=== PATIENT | female | born 1940 | race Caucasian/White ===

== ENCOUNTER 2022-06-01 14:35 | Inpatient (IN) ==
[2022-06-01] MEDS ORDERED: SODIUM CHLORIDE 0.9% 1000ML 2,000 ML IV ONE (14:42)
--- NOTE | 2022-06-01 14:47 | Emergency Department Note ---
Impression & Plan Sepsis, Lactic acidosis, Hypokalemia, ARTIE (acute kidney injury), Elevated troponin, CKD (chronic kidney disease) stage 3, GFR 30-59 ml/min ED Provider Note NAME: WALTER BEEBE AGE: 81 SEX: F : 1940 ARRIVES VIA: Ambulance INFORMANT: Patient ED PROVIDER(S): Gold Zeng DO CHIEF COMPLAINT: weakness HPI: Patient is an 81-year-old female who presents to the ER as she has not left bed for the past week and notes that she has not been eating and drinking. She notes she fell about twice within the past week but does not believe she hit her head. She denies any headache or change in vision. No chest pain or shortness of breath. She admits to nausea and vomiting. She does admit to some abdominal discomfort. No urinary symptoms. She does feel very weak. [facility] was called and consequently EMS was called as well and transferred her to the ER. She denies taking any medications. Blood pressures in route were in the 80s. ROS: See above HPI for pertinent positives & negatives. A total of 10 systems reviewed and were otherwise negative. PAST MEDICAL HISTORY:See Below PAST SURGICAL HISTORY:See Below FAMILY HISTORY:See Below SOCIAL HISTORY:See Below HOME MEDICATIONS:See Below ALLERGIES:See Below VITALS:See Below PHYSICAL EXAMINATION: GENERAL: Sitting up in bed, alert, ill-appearing, disheveled with vomit on her shirt, cachectic EYE EXAM: normal conjunctiva. OROPHARYNX: mucous membranes are dry NECK: supple, no nuchal rigidity, no adenopathy, non-tender LUNGS: Clear to auscultation. Normal chest wall mechanics HEART: no murmurs, S1 normal and S2 normal ABDOMEN: abdomen soft, non-tender, normo-active bowel sounds, no masses, no rebound or guarding. BACK: Back is symmetrical on inspection and there is no deformity, no midline tenderness, no CVA tenderness. UPPER EXTREMITIES: upper extremities are grossly normal. LOWER EXTREMITIES: No pitting edema. NEURO EXAM: Oriented to person, place but not year, cranial nerves II-XII intact, normal speech, no weakness of arms, no weakness of legs. No drift. Finger to nose intact. Gross sensation intact. GCS 14 MEDICAL DECISION MAKING: Patient is an 81-year-old female who presents ER for above-stated complaint. IV was established blood work was obtained. Labs show mild leukocytosis of 14,000. No significant anemia. INR was unremarkable. BMP with a sodium elevated at 148. Significant hypokalemia 2.6. Cr 1.6. Lactate up at 7. Troponin elevated at 120. UA did have nitrates but likely secondary to the bilirubin. COVID was negative. Patient was given 2 g of Rocephin and covered broad-spectrum with Zosyn following having CT with a "distended gallbladder although she has no pain on exam. She was given 3 L of IV fluids. Updated bedside. Discussed with the hospitalist for further evaluation. CT head cervical spine were negative. Chest x-ray was unremarkable. EKG did show ST depressions. Patient's mentation improved significantly with IV fluids. She adamantly denies any pain at this time including chest pain and shortness of breath. Uncertain of the true cause of this but will not start her on a blood thinner at this time as she is not having any chest pain and will defer to the hospitalist. Triage Nursing notes reviewed. Limited review of prior medical records performed Vital Signs: reviewed and remarkable for no significant abnormalities Differential diagnosis: Infection, dehydration, metabolic abnormality, hypo/hyperglycemia, electrolyte disturbance, anemia, hypoxia, cardiac sources, intracerebral event, toxicologic, neurologic, as well as other pathologies. ER treatment provided: See below Diagnostics interpreted by me: ECG: Sinus rhythm rate of [address] depressions in V3 to V6 QTC 511 Cardiac Monitoring: An order was placed for continuous cardiac monitoring. The monitor shows a rate of 112 with sinus rhythm. Laboratory studies: As stated above and show below. Imaging studies: CT head, cervical spine and was negative CT abdomen pelvis showed distended gallbladder Consultation(s): Discussed with Renata from [facility] for further evaluation Procedures: none Critical Care: I have personally spent 32 minutes of critical care time in the direct management of this patient. This includes bedside care, interpretation of diagnostic studies, and testing, discussion with consultants, patient, and family members, and other required patient management activities. This 32 minutes is in excess of all separately billable procedures. Past Med/Surg History Medical History (Updated 06/01/22 @ 20:01 by Gold Zeng DO) CKD (chronic kidney disease) stage 3, GFR 30-59 ml/min Esotropia of right eye HLD (hyperlipidemia) HTN (hypertension) Surgical History (Updated 06/01/22 @ 17:35 by Renata Paz PA-C) Hx of bilateral cataract extraction Hx of fracture of patella Family History (Updated 06/01/22 @ 17:36 by Renata Paz PA-C) Mother Progressive supranuclear palsy Father Sepsis Cancer Social History (Updated 06/01/22 @ 17:36 by Renata Paz PA-C) Smoking Status: Never smoker Hx Alcohol Use: No Preferred Language: Tuvaluan marital status: Current Living Situation: Spouse Feels Safe at Home: No Allergies Allergies Allergy/AdvReac Type Severity Reaction Status Date / Time No Known Allergies Allergy Unverified 06/01/22 17:01 Home Meds Home Medications Medication Instructions Recorded Confirmed cholecalciferol (vitamin D3) 50 50 mcg PO DAILY 06/01/22 06/01/22 mcg (2,000 unit) tablet (Vitamin D3) multivitamin 1 tab PO DAILY 06/01/22 06/01/22 Results & Data (ED) Vital Signs Vital Signs - 24 hr 06/01/22 14:45 06/01/22 14:55 Temperature 36.5 C Temperature Source Oral Pulse Rate 105 H Respiratory Rate 16 16 Respiratory Effort / Characteristics Non-Labored Spontaneous Non-Labored Spontaneous Respiratory Depth Normal Respiratory Pattern Regular Blood Pressure 113/70 Blood Pressure Mean 84 Blood Pressure Position Semi-fowlers Pulse Oximetry 95 96 Oxygen Delivery Method Room Air Room Air Sepsis Recent Fever Within 48 Hours No Sepsis New/Unexplained Change in Mental Status No Sepsis Action Taken by Nursing No Action Required Laboratory Data Result diagrams: 06/01/22 14:49 06/01/22 14:49 Lab Results 06/01/22 06/01/22 06/01/22 Range/Units 14:49 14:49 14:49 WBC 14.68 H (4.8-10.8) K/ul RBC 5.55 H (3.93-5.22) M/uL Hgb 15.5 (12.0-16.0) g/dl Hct 45.7 H (34.1-44.9) % MCV 82.3 (80.0-100.0) fL MCH 27.9 (25.0-34.0) pg MCHC 33.9 (32.0-36.0) g/dL RDW Std Deviation 41.3 (36.4-46.3) fL RDW Coeff of Kassandra 14.0 (11.5-14.5) % Plt Count 246 (130-400) K/uL MPV 10.2 (9.4-12.3) fL Immature Gran % (Auto) 0.3 % Neut % (Auto) 85.7 % Lymph % (Auto) 11.9 % Cecil % (Auto) 2.0 % Eos % (Auto) 0.0 % Baso % (Auto) 0.1 % Neut # (Auto) 12.59 H (1.4-6.5) K/uL Lymph # (Auto) 1.74 (1.2-3.4) K/uL Cecil # (Auto) 0.29 (0.24-0.82) K/uL Eos # (Auto) 0.00 (0-0.50) K/uL Baso # (Auto) 0.02 (0-0.2) K/uL Immature Gran # (Auto) 0.04 H (0.00-0.02) K/uL PT 12.2 H (9.0-12.0) Seconds INR 1.2 H (0.9-1.1) APTT 26.7 (21.0-31.0) Seconds PTT Ratio 1.0 Sodium 148 H (136-145) mmol/L Potassium 2.6 L (3.5-5.1) mmol/L Chloride 93 L (98-107) mmol/L Carbon Dioxide 31 (21-32) mmol/L Anion Gap 24 H (3-11) BUN 61 H (6-23) mg/dl Creatinine 1.61 H (0.6-1.2) mg/dl Est Cr Clr Drug Dosing Not Reportable Est GFR ( Amer) 33.9 ml/min Est GFR (Non-Af Amer) 29.3 ml/min BUN/Creatinine Ratio 37.9 H (10-20) Glucose 117 H (70-99(Fasting)) mg/dl Lactate (0.4-2.0) mmol/L Calcium 8.1 L (8.5-10.1) mg/dl Magnesium 2.2 (1.7-2.4) mg/dl Total Bilirubin 1.8 H (0.2-1.0) mg/dl AST 24 (13-39) U/L ALT 19 (7-52) U/L Alkaline Phosphatase 103 (34-104) U/L Total Creatine Kinase 44 (26-192) U/L Troponin I High Sens (0-14) pg/ml Total Protein 6.6 (6.0-8.3) gm/dl Albumin 3.3 L (3.4-5.0) gm/dl Globulin 3.3 (2.5-4.0) gm/dl Albumin/Globulin Ratio 1.0 (0.9-2) SARS-CoV-2, RNA, NAAT (NEGATIVE) 06/01/22 06/01/22 06/01/22 Range/Units 14:49 14:49 15:00 WBC (4.8-10.8) K/ul RBC (3.93-5.22) M/uL Hgb (12.0-16.0) g/dl Hct (34.1-44.9) % MCV (80.0-100.0) fL MCH (25.0-34.0) pg MCHC (32.0-36.0) g/dL RDW Std Deviation (36.4-46.3) fL RDW Coeff of Kassandra (11.5-14.5) % Plt Count (130-400) K/uL MPV (9.4-12.3) fL Immature Gran % (Auto) % Neut % (Auto) % Lymph % (Auto) % Cecil % (Auto) % Eos % (Auto) % Baso % (Auto) % Neut # (Auto) (1.4-6.5) K/uL Lymph # (Auto) (1.2-3.4) K/uL Cecil # (Auto) (0.24-0.82) K/uL Eos # (Auto) (0-0.50) K/uL Baso # (Auto) (0-0.2) K/uL Immature Gran # (Auto) (0.00-0.02) K/uL PT (9.0-12.0) Seconds INR (0.9-1.1) APTT (21.0-31.0) Seconds PTT Ratio Sodium (136-145) mmol/L Potassium (3.5-5.1) mmol/L Chloride (98-107) mmol/L Carbon Dioxide (21-32) mmol/L Anion Gap (3-11) BUN (6-23) mg/dl Creatinine (0.6-1.2) mg/dl Est Cr Clr Drug Dosing Est GFR ( Amer) ml/min Est GFR (Non-Af Amer) ml/min BUN/Creatinine Ratio (10-20) Glucose (70-99(Fasting)) mg/dl Lactate 7.0 H* (0.4-2.0) mmol/L Calcium (8.5-10.1) mg/dl Magnesium (1.7-2.4) mg/dl Total Bilirubin (0.2-1.0) mg/dl AST (13-39) U/L ALT (7-52) U/L Alkaline Phosphatase (34-104) U/L Total Creatine Kinase (26-192) U/L Troponin I High Sens 116.4 H* (0-14) pg/ml Total Protein (6.0-8.3) gm/dl Albumin (3.4-5.0) gm/dl Globulin (2.5-4.0) gm/dl Albumin/Globulin Ratio (0.9-2) SARS-CoV-2, RNA, NAAT NEGATIVE (NEGATIVE) Administered Medications Discontinued Medications Sodium Chloride (Nss 1000ml) 2,000 mls @ 999 mls/hr IV .Q2H1M ONE Stop: 06/01/22 16:42 Last Infusion: 06/01/22 17:49 Dose: 0 mls/hr Documented By: Admin: 06/01/22 15:07 Dose: 999 mls/hr Documented By: NA Potassium Chloride (K Mingo / Wtr) 10 meq in 100 mls @ 100 mls/hr IV Q1H NELLI; Protocol Stop: 06/01/22 17:14 Last Infusion: 06/01/22 17:49 Dose: 0 mls/hr Documented By: Admin: 06/01/22 16:34 Dose: 100 mls/hr Documented By: Infusion: 06/01/22 16:07 Dose: 100 mls/hr Documented By: Admin: 06/01/22 15:07 Dose: 100 mls/hr Documented By: NA Ceftriaxone Sodium (Rocephin) 2,000 mg in 70 mls @ 140 mls/hr IV NOW STA Stop: 06/01/22 16:03 Last Infusion: 06/01/22 17:49 Dose: 0 mls/hr Documented By: Admin: 06/01/22 16:35 Dose: 140 mls/hr Documented By: JOANN Sodium Chloride (Nss 1000ml) 1,000 mls @ 999 mls/hr IV .Q1H1M ONE Stop: 06/01/22 16:34 Last Infusion: 06/01/22 17:49 Dose: 0 mls/hr Documented By: Admin: 06/01/22 16:34 Dose: 999 mls/hr Documented By: JOANN Piperacillin Sod/Tazobactam Sod (Zosyn) 4.5 gm in 120 mls @ 240 mls/hr IV NOW ONE Stop: 06/01/22 17:19 Last Infusion: 06/01/22 18:33 Dose: 0 mls/hr Documented By: Admin: 06/01/22 17:46 Dose: 240 mls/hr Documented By: ROMAN Potassium Chloride (K Mingo / Wtr) 10 meq in 100 mls @ 100 mls/hr IV ONE ONE; Protocol Stop: 06/01/22 18:31 Last Infusion: 06/01/22 18:49 Dose: 0 mls/hr Documented By: Admin: 06/01/22 17:48 Dose: 100 mls/hr Documented By: ROMAN Imaging Data Radiologist's Impression: Abdomen/Pelvis CT 06/01/22 14:[address] WITHOUT CONTRAST CT DOSE: HISTORY: vomiting TECHNIQUE: Multiaxial CT images of the abdomen and pelvis were performed without contrast. A dose lowering technique was utilized adhering to the principles of ALARA. COMPARISON STUDY: None. FINDINGS: The lung bases are clear. No pneumoperitoneum. No pneumatosis. No fractures within the visualized osseous structures. Levoscoliosis of the lumbar spine. There is a large hiatus hernia containing the proximal stomach. The unenh anced liver, gallbladder, pancreas, spleen, and adrenal glands are unremarkable. There are few punctate left renal calculi. No ureteral calculi. No hydronephrosis. No retroperitoneal lymphadenopathy. Mild calcified plaque within the normal caliber abdominal aorta. The bladder is moderately distended. There is a large partially calcified uterine fibroid measuring 6.9 cm. There are few additional smaller calcified and noncalcified uterine fibroids. Suboptimal evaluation for bowel pathology due to the lack of intravenous and oral contrast. However, there is no evidence for bowel obstruction. Normal appendix. There appears a mild thickening within the splenic flexure of the colon, ascending colon, and proximal transverse colon. This is consistent with a nonspecific colitis. This favors an infectious or inflammatory process. IMPRESSION: 1. Mild thickening within the colon as described above likely representing an infectious or inflammatory colitis. 2. No evidence for bowel obstruction. 3. Distended bladder. 4. Fibroid uterus. 5. Left-sided nephrolithiasis. No hydronephrosis. 6. Large hiatus hernia. ACT 112: Negative or not required by law. Electronically signed by: Chad Ward M.D. 06/01/2022 4:[address] 06/01/22 14:42 CT SCAN OF THE CERVICAL SPINE CLINICAL HISTORY: Fall. Change in mental status. COMPARISON STUDY: No priors. TECHNIQUE: CT scan of the cervical spine is performed from the skull base to the upper thoracic spine. Images are reviewed in the axial, sagittal, and coronal planes. IV contrast was not administered for this examination. A dose lowering technique was utilized adhering to the principles of ALARA. CT DOSE: 1070.21 mGy.cm FINDINGS: Skeletal structures: The skeletal structures are osteopenic. There is no evidence of fracture or subluxation involving the cervical spine. Vertebral body height and alignment are maintained. Anterior osteophytes are seen throughout. The odontoid process and lateral masses are intact. The atlantoaxial articulation is preserved noting productive degenerative change. The spinous processes appear intact. There is mild to moderate multilevel cervical spondylosis. Uncovertebral and facet arthropathy contribute to neural foraminal narrowing at several levels. Intervertebral discs: There is severe disc space narrowing at C3-C4 and C5-C6. Mild narrowing is seen at the remaining cervical levels. Central canal: Posterior disc osteophyte complexes at C3-C4, C5-C6, and C6-C7 may contribute to acquired compromise of the central canal. Soft tissues: The prevertebral and paraspinous soft tissues are within normal limits. Calvarium: The visualized calvarium at the skull base appears intact. Brain parenchyma: Partially visualized brain parenchyma at the skull base is within normal limits noting age-related involutional change. Sinuses and mastoids: The visualized paranasal sinuses are clear. The mastoid air cells are well pneumatized. Lung apices: Clear as visualized. IMPRESSION: 1. There is no evidence of fracture or subluxation involving the cervical spine. 2. Osteopenia and spondylotic change as above. ACT 112: Negative or not required by law. Electronically signed by: Geraldo Ambriz M.D. 06/01/2022 4:25 PM Chest X-Ray 06/01/22 14:42 XR chest 1V portable CLINICAL HISTORY: SEPSIS. COMPARISON STUDY: No previous studies for comparison. TECHNIQUE: 1 view of the chest FINDINGS: Single frontal view of the chest demonstrates the cardiomediastinal silhouette to be within normal limits. The lungs are clear of alveolar opacities. There is no evidence for pleural effusion. There is no evidence for vascular congestion. There is no acute osseous pathology. IMPRESSION: 1. No acute cardiopulmonary disease. ACT 112: Negative or not required by law. Electronically signed by: Kai Bui M.D. 06/01/2022 3:[address] 06/01/22 14:42 CT SCAN OF THE BRAIN WITHOUT IV CONTRAST CLINICAL HISTORY: Fall. Change in mental status. COMPARISON STUDY: No priors TECHNIQUE: Unenhanced axial CT scan of the brain is performed from the vertex to the skull base. A dose lowering technique was utilized adhering to the principles of ALARA. FINDINGS: Brain parenchyma: There is age-related involutional change noting mild subcortical and periventricular microangiopathic disease. There is no hemorrhage, mass effect, or evidence of acute territorial ischemia by CT criteria. Guerrero-white matter differentiation is preserved. No extra-axial fluid collection is seen. Ventricles, sulci, cisterns: Prominent secondary to involutional change. Intracranial vasculature: There is atherosclerotic calcification of the cavernous carotid arteries. Calvarium: The skeletal structures are osteopenic. No depressed calvarial fracture is identified. Sinuses and mastoids: The visualized paranasal sinuses are clear. The mastoid air cells are well pneumatized. Orbits: The bony orbits are grossly intact. There are bilateral ocular lens implants. IMPRESSION: There is no hemorrhage, mass effect, or evidence of acute territorial ischemia by CT criteria. ACT 112: Negative or not required by law. Electronically signed by: Geraldo Ambriz M.D. 06/01/2022 4:19 PM Discharge Plan Visit Data Chief Complaint: Fall ED Provider: Gold Zeng Discharge Problem: Sepsis, Lactic acidosis, Hypokalemia, ARTIE (acute kidney injury), Elevated troponin, CKD (chronic kidney disease) stage 3, GFR 30-59 ml/min
[2022-06-01 15:04] LABS: Basophils # (auto) 0.02 K/uL (0-0.2); Basophils % (auto) 0.1 %; Hematocrit (blood only) 45.7 % (34.1-44.9); Hemoglobin 15.5 g/dl (12.0-16.0); Immature Granulocytes # (auto) 0.04 K/uL (0.00-0.02); Immature Granulocytes % (auto) 0.3 %; Lymphocytes # (auto) 1.74 K/uL (1.2-3.4); Lymphocytes % (auto) 11.9 %; Mean Corpuscular Hemoglobin 27.9 pg (25.0-34.0); Mean Corpuscular Hgb Conc 33.9 g/dL (32.0-36.0); Mean Corpuscular Volume 82.3 fL (80.0-100.0); Mean Platelet Volume 10.2 fL (9.4-12.3); Monocytes # (auto) 0.29 K/uL (0.24-0.82); Neutrophils # (auto) 12.59 K/uL (1.4-6.5); Neutrophils % (auto) 85.7 %; Platelet Count 246 K/uL (130-400); RDW Standard Deviation 41.3 fL (36.4-46.3); Red Blood Count 5.55 M/uL (3.93-5.22); White Blood Count 14.68 K/ul (4.8-10.8)
[2022-06-01] MEDS: POTASSIUM CHLORIDE / WTR 10 MEQ/100 ML PLCT IV SCH ×4 (15:07→22:50)
[2022-06-01 15:17] LABS: INR 1.2 (0.9-1.1); Partial Thromboplastin Time 26.7 Seconds (21.0-31.0); Prothrombin Time 12.2 Seconds (9.0-12.0)
--- NOTE | 2022-06-01 15:18 | XRay Report ---
XR chest 1V portable CLINICAL HISTORY: SEPSIS. COMPARISON STUDY: No previous studies for comparison. TECHNIQUE: 1 view of the chest FINDINGS: Single frontal view of the chest demonstrates the cardiomediastinal silhouette to be within normal li mits. The lungs are clear of alveolar opacities. There is no evidence for pleural effusion. There is no evidence for vascular congestion. There is no acute osseous pathology. IMPRESSION: 1. No acute cardiopulmonary disease. ACT 112: Negative or not required by law. Electronically signed by: Kai Bui M.D. 06/01/2022 3:16 PM
[2022-06-01 15:25] LABS: Alanine Aminotransferase 19 U/L (7-52); Albumin Level 3.3 gm/dl (3.4-5.0); Alkaline Phosphatase 103 U/L (34-104); Anion Gap 24 (3-11); Aspartate Aminotransferase 24 U/L (13-39); BUN Creatinine Ratio 37.9 (10-20); Bilirubin,Total 1.8 mg/dl (0.2-1.0); Blood Urea Nitrogen 61 mg/dl (6-23); Calcium 8.1 mg/dl (8.5-10.1); Carbon Dioxide 31 mmol/L (21-32); Chloride 93 mmol/L (98-107); Creatine Kinase 44 U/L (26-192); Est GFR (African American) 33.9 ml/min; Est GFR (Non-African American) 29.3 ml/min; Globulin 3.3 gm/dl (2.5-4.0); Glucose 117 mg/dl (70-99(Fasting)); Magnesium 2.2 mg/dl (1.7-2.4); Potassium 2.6 mmol/L (3.5-5.1); Sodium 148 mmol/L (136-145); Total Protein 6.6 gm/dl (6.0-8.3)
[2022-06-01] MEDS ORDERED: cefTRIAXone SODIUM 2,000 MG/70 ML BAG IV STA (15:34)
[2022-06-01] MEDS ORDERED: SODIUM CHLORIDE 0.9% 1000ML 1,000 ML IV ONE (15:34)
--- NOTE | 2022-06-01 16:21 | CT Scan Report ---
CT SCAN OF THE BRAIN WITHOUT IV CONTRAST CLINICAL HISTORY: Fall. Change in mental status. COMPARISON STUDY: No priors TECHNIQUE: Unenhanced axial CT scan of the brain is performed from the vertex to the skull base. A do se lowering technique was utilized adhering to the principles of ALARA. FINDINGS: Brain parenchyma: There is age-related involutional change noting mild subcortical and periventricula r microangiopathic disease. There is no hemorrhage, mass effect, or evidence of acute territorial isc hemia by CT criteria. Guerrero-white matter differentiation is preserved. No extra-axial fluid collection is seen. Ventricles, sulci, cisterns: Prominent secondary to involutional change. Intracranial vasculature: There is atherosclerotic calcification of the cavernous carotid arteries. Calvarium: The skeletal structures are osteopenic. No depressed calvarial fracture is identified. Sinuses and mastoids: The visualized paranasal sinuses are clear. The mastoid air cells are well pneu matized. Orbits: The bony orbits are grossly intact. There are bilateral ocular lens implants. IMPRESSION: There is no hemorrhage, mass effect, or evidence of acute territorial ischemia by CT torie jiménez. ACT 112: Negative or not required by law. Electronically signed by: Geraldo Ambriz M.D. 06/01/2022 4:19 PM
--- NOTE | 2022-06-01 16:28 | CT Scan Report ---
CT SCAN OF THE CERVICAL SPINE CLINICAL HISTORY: Fall. Change in mental status. COMPARISON STUDY: No priors. TECHNIQUE: CT scan of the cervical spine is performed from the skull base to the upper thoracic spine . Images are reviewed in the axial, sagittal, and coronal planes. IV contrast was not administered fo r this examination. A dose lowering technique was utilized adhering to the principles of ALARA. CT DOSE: 1070.21 mGy.cm FINDINGS: Skeletal structures: The skeletal structures are osteopenic. There is no evidence of fracture or subl uxation involving the cervical spine. Vertebral body height and alignment are maintained. Anterior o steophytes are seen throughout. The odontoid process and lateral masses are intact. The atlantoaxial articulation is preserved noting productive degenerative change. The spinous processes appear intact. There is mild to moderate multilevel cervical spondylosis. Uncovertebral and facet arthropathy contr ibute to neural foraminal narrowing at several levels. Intervertebral discs: There is severe disc space narrowing at C3-C4 and C5-C6. Mild narrowing is seen at the remaining cervical levels. Central canal: Posterior disc osteophyte complexes at C3-C4, C5-C6, and C6-C7 may contribute to acqui red compromise of the central canal. Soft tissues: The prevertebral and paraspinous soft tissues are within normal limits. Calvarium: The visualized calvarium at the skull base appears intact. Brain parenchyma: Partially visualized brain parenchyma at the skull base is within normal limits not ing age-related involutional change. Sinuses and mastoids: The visualized paranasal sinuses are clear. The mastoid air cells are well pneu matized. Lung apices: Clear as visualized. IMPRESSION: 1. There is no evidence of fracture or subluxation involving the cervical spine. 2. Osteopenia and spondylotic change as above. ACT 112: Negative or not required by law. Electronically signed by: Geraldo Ambriz M.D. 06/01/2022 4:25 PM
--- NOTE | 2022-06-01 16:29 | CT Scan Report ---
ABDOMEN AND PELVIS CT WITHOUT CONTRAST CT DOSE: HISTORY: vomiting TECHNIQUE: Multiaxial CT images of the abdomen and pelvis were performed without contrast. A dose lo wering technique was utilized adhering to the principles of ALARA. COMPARISON STUDY: None. FINDINGS: The lung bases are clear. No pneumoperitoneum. No pneumatosis. No fractures within the visu alized osseous structures. Levoscoliosis of the lumbar spine. There is a large hiatus hernia containi ng the proximal stomach. The unenhanced liver, gallbladder, pancreas, spleen, and adrenal glands are unremarkable. There are few punctate left renal calculi. No ureteral calculi. No hydronephrosis. No r etroperitoneal lymphadenopathy. Mild calcified plaque within the normal caliber abdominal aorta. The bladder is moderately distended. There is a large partially calcified uterine fibroid measuring 6.9 c m. There are few additional smaller calcified and noncalcified uterine fibroids. Suboptimal evaluatio n for bowel pathology due to the lack of intravenous and oral contrast. However, there is no evidence for bowel obstruction. Normal appendix. There appears a mild thickening within the splenic flexure o f the colon, ascending colon, and proximal transverse colon. This is consistent with a nonspecific co litis. This favors an infectious or inflammatory process. IMPRESSION: 1. Mild thickening within the colon as described above likely representing an infectious or inflammat ory colitis. 2. No evidence for bowel obstruction. 3. Distended bladder. 4. Fibroid uterus. 5. Left-sided nephrolithiasis. No hydronephrosis. 6. Large hiatus hernia. ACT 112: Negative or not required by law. Electronically signed by: Chad Ward M.D. 06/01/2022 4:27 PM
[2022-06-01] MEDS ORDERED: PIPERACILLIN/TAZOBACTAM 4.5 GM/120 ML BAG IV ONE (16:50)
[2022-06-01 17:00] LABS: Appearance Urine Cloudy (Clear); Bacteria Urine Automated 3+ (Negative); Blood Urine 2+ (Negative); Color Urine Orange; Glucose Urine UA Negative (Negative); Ketones Urine Negative (Negative); Leukocyte Esterase Urine 3+ (Negative); Nitrite Urine Positive (Negative); Protein Urine 1+ (Negative); RBC Urine Automated 0-4 /hpf (0-4); Specific Gravity Urine 1.016 (1.000-1.030); Urobilinogen Urine Negative (Negative); WBC Urine Automated >30 /hpf (0-5); pH Urine 5.5 (4.5-7.5)
--- NOTE | 2022-06-01 17:09 | History & Physical Report ---
Date of Service June 01, 2022 Assessment & Plan (1) Sepsis: (2) UTI (urinary tract infection): (3) Colitis: (4) Lactic acidosis: (5) Hypokalemia: (6) ARTIE (acute kidney injury): (7) Elevated troponin: Plan This is an 81 yr old F who has a significant PMH of HTN, HLD, CKD-3 who presents to ED 2/2 to unable to get out of bed. Patient presents to ED after being found at home per report unable to get out of bed for the past week. She is severely malnourished and cachectic. OOA involved. She has not seen a Doctor in a while. She also meets criteria for severe sepsis secondary to leukocytosis and tachycardia and ARTIE Source: UTI and possible Colitis Evidence of lactic acidosis blood and urine cultures obtained broad spectrum antibiotics IV Rocephin and Zosyn Severe Sepsis UTI Possible Colitis Lactic Acidosis Admit to med telemetry Continue broad-spectrum IV antibiotics with Zosyn for urine and GI coverage Will receive 3 L of IV fluid in the ED Continue NSS +20 M EQ KCl Will cycle BMP q6h in setting of ARTIE, hypokalemia and hypernatremia Monitor sodium closely, normal saline given in setting of sepsis, but may need to switch to D5 if sodium worsening Repeat lactate pending and trend supportive care for n/v clear liquid diet for now Hypokalemia 10 M EQ KCl IV x2 repleted in ED Give additional 5K riders Repeat BMP at 10 PM and every 6 hours Hypernatremia Likely due to free water deficit, volume contraction with vomiting and diarrhea Initially repleted with normal saline in setting of sepsis Follow sodium closely as may need to convert to D5 if sodium worsening ARTIE on CKD stage III BUN/creatinine 61 and 1.61 baseline cr 1.0 continue IVF monitor Elevated troponin QTC prolongation cycle trops pt denies CP, likely demand in setting of sepsis obtain echo, consult cards monitor ecg and avoid qtc prolonging meds HTN/HLD pt previously prescribed lisinopril and atorvastatin but pt not taking DVT ppx: SQ heparin bid Dispo: med tele, pt needs CM involvement as pt not caring for self at home FULL CODE PCP: Danielle Pt was seen and examined in collaboration with Dr. Sandra, please see addendum History of Present Illness Chief Complaint: Unable to get OOB x 1 week. Primary Care Provider: Dr. Santos This is an 81 yr old F who has a significant PMH of HTN, HLD, CKD-3 who presents to ED 2/2 to unable to get out of bed. She lives at home with her . EMS was summoned today. She admits to diarrhea 2-3 weeks ago that lasted 3-4 days. She also had vomiting. Last time she had a BM was 3 days ago and it was loose. She vomited in the room but denies feeling nausea at home. She denies any abdominal pain, chest pain, sob, cough, uri sx, f/c/s, dizziness, and lightheaded. Overall appetite is poor. When asked when she ate something last sh e said, "its been awhile." Hx obtained from pt but unsure if reliable. Apparently she has been in bed for the past week. Overall she states, "I feel great." Per ED Staff office of aging has been involved. Allergies Allergy/AdvReac Type Severity Reaction Status Date / Time No Known Allergies Allergy Unverified 06/01/22 17:01 Home Medications Medication Instructions Recorded Confirmed Type cholecalciferol (vitamin D3) 50 50 mcg PO DAILY 06/01/22 06/01/22 History mcg (2,000 unit) tablet (Vitamin D3) multivitamin 1 tab PO DAILY 06/01/22 06/01/22 History Past Med/Surg History Medical History (Updated 06/01/22 @ 20:01 by Gold Zeng DO) CKD (chronic kidney disease) stage 3, GFR 30-59 ml/min Esotropia of right eye HLD (hyperlipidemia) HTN (hypertension) Surgical History (Updated 06/01/22 @ 17:35 by Renata Paz PA-C) Hx of bilateral cataract extraction Hx of fracture of patella Family History (Updated 06/01/22 @ 17:36 by Renata Paz PA-C) Mother Progressive supranuclear palsy Father Sepsis Cancer Social History (Updated 06/01/22 @ 17:36 by Renata Paz PA-C) Smoking Status: Never smoker Hx Alcohol Use: No Preferred Language: Monegasque marital status: Current Living Situation: Spouse Feels Safe at Home: No Review of Systems Review of Systems: All systems reviewed & are unremarkable except as noted in HPI & below Physical Exam Physical Exam: Please refer to Dr. Sandra addendum for physical exam findings Results & Data Results & Data ([facility]) Vital Signs (Past 12 Hours) Vital Signs Temp Pulse Resp BP Pulse Ox O2 Del Method 06/01/22 14:55 16 96 Room Air 06/01/22 14:45 36.5 C 105 H 16 113/70 95 Room Air Diagnostic Findings Abdomen/Pelvis CT 06/01/22 14:[address] WITHOUT CONTRAST CT DOSE: HISTORY: vomiting TECHNIQUE: Multiaxial CT images of the abdomen and pelvis were performed without contrast. A dose lowering technique was utilized adhering to the principles of ALARA. COMPARISON STUDY: None. FINDINGS: The lung bases are clear. No pneumoperitoneum. No pneumatosis. No fractures within the visualized osseous structures. Levoscoliosis of the lumbar spine. There is a large hiatus hernia containing the proximal stomach. The une nhanced liver, gallbladder, pancreas, spleen, and adrenal glands are unremarkable. There are few punctate left renal calculi. No ureteral calculi. No hydronephrosis. No retroperitoneal lymphadenopathy. Mild calcified plaque within the normal caliber abdominal aorta. The bladder is moderately distended. There is a large partially calcified uterine fibroid measuring 6.9 cm. There are few additional smaller calcified and noncalcified uterine fibroids. Suboptimal evaluation for bowel pathology due to the lack of intravenous and oral contrast. However, there is no evidence for bowel obstruction. Normal appendix. There appears a mild thickening within the splenic flexure of the colon, ascending colon, and proximal transverse colon. This is consistent with a nonspecific colitis. This favors an infectious or inflammatory process. IMPRESSION: 1. Mild thickening within the colon as described above likely representing an infectious or inflammatory colitis. 2. No evidence for bowel obstruction. 3. Distended bladder. 4. Fibroid uterus. 5. Left-sided nephrolithiasis. No hydronephrosis. 6. Large hiatus hernia. ACT 112: Negative or not required by law. Electronically signed by: Chad Ward M.D. 06/01/2022 4:[address] 06/01/22 14:42 CT SCAN OF THE CERVICAL SPINE CLINICAL HISTORY: Fall. Change in mental status. COMPARISON STUDY: No priors. TECHNIQUE: CT scan of the cervical spine is performed from the skull base to the upper thoracic spine. Images are reviewed in the axial, sagittal, and coronal planes. IV contrast was not administered for this examination. A dose lowering technique was utilized adhering to the principles of ALARA. CT DOSE: 1070.21 mGy.cm FINDINGS: Skeletal structures: The skeletal structures are osteopenic. There is no evidence of fracture or subluxation involving the cervical spine. Vertebral body height and alignment are maintained. Anterior osteophytes are seen throughout. The odontoid process and lateral masses are intact. The atlantoaxial articulation is preserved noting productive degenerative change. The spinous processes appear intact. There is mild to moderate multilevel cervical spondylosis. Uncovertebral and facet arthropathy contribute to neural foraminal narrowing at several levels. Intervertebral discs: There is severe disc space narrowing at C3-C4 and C5-C6. Mild narrowing is seen at the remaining cervical levels. Central canal: Posterior disc osteophyte complexes at C3-C4, C5-C6, and C6-C7 may contribute to acquired compromise of the central canal. Soft tissues: The prevertebral and paraspinous soft tissues are within normal limits. Calvarium: The visualized calvarium at the skull base appears intact. Brain parenchyma: Partially visualized brain parenchyma at the skull base is within normal limits noting age-related involutional change. Sinuses and mastoids: The visualized paranasal sinuses are clear. The mastoid air cells are well pneumatized. Lung apices: Clear as visualized. IMPRESSION: 1. There is no evidence of fracture or subluxation involving the cervical spine. 2. Osteopenia and spondylotic change as above. ACT 112: Negative or not required by law. Electronically signed by: Geraldo Ambriz M.D. 06/01/2022 4:25 PM Chest X-Ray 06/01/22 14:42 XR chest 1V portable CLINICAL HISTORY: SEPSIS. COMPARISON STUDY: No previous studies for comparison. TECHNIQUE: 1 view of the chest FINDINGS: Single frontal view of the chest demonstrates the cardiomediastinal silhouette to be within normal limits. The lungs are clear of alveolar opacities. There is no evidence for pleural effusion. There is no evidence for vascular congestion. There is no acute osseous pathology. IMPRESSION: 1. No acute cardiopulmonary disease. ACT 112: Negative or not required by law. Electronically signed by: Kai Bui M.D. 06/01/2022 3:[address] 06/01/22 14:42 CT SCAN OF THE BRAIN WITHOUT IV CONTRAST CLINICAL HISTORY: Fall. Change in mental status. COMPARISON STUDY: No priors TECHNIQUE: Unenhanced axial CT scan of the brain is performed from the vertex to the skull base. A dose lowering technique was utilized adhering to the principles of ALARA. FINDINGS: Brain parenchyma: There is age-related involutional change noting mild subcortical and periventricular microangiopathic disease. There is no hemorrhage, mass effect, or evidence of acute territorial ischemia by CT criteria. Guerrero-white matter differentiation is preserved. No extra-axial fluid collection is seen. Ventricles, sulci, cisterns: Prominent secondary to involutional change. Intracranial vasculature: There is atherosclerotic calcification of the val nous carotid arteries. Calvarium: The skeletal structures are osteopenic. No depressed calvarial fracture is identified. Sinuses and mastoids: The visualized paranasal sinuses are clear. The mastoid air cells are well pneumatized. Orbits: The bony orbits are grossly intact. There are bilateral ocular lens implants. IMPRESSION: There is no hemorrhage, mass effect, or evidence of acute ter ritorial ischemia by CT criteria. ACT 112: Negative or not required by law. Electronically signed by: Geraldo Ambriz M.D. 06/01/2022 4:19 PM Medications Administered Medication List Potassium Chloride (K [place] / Wtr) 10 meq in 100 mls @ 100 mls/hr IV Q1H NELLI; Protocol Stop: 06/01/22 17:14 Last Admin: 06/01/22 16:34 Dose: 100 mls/hr Documented By: Infusion: 06/01/22 16:07 Dose: 100 mls/hr Documented By: Admin: 06/01/22 15:07 Dose: 100 mls/hr Documented By: DERICK Discontinued Medications Sodium Chloride (Nss 1000ml) 2,000 mls @ 999 mls/hr IV .Q2H1M ONE Stop: 06/01/22 16:42 Last Admin: 06/01/22 15:07 Dose: 999 mls/hr Documented By: DERICK Ceftriaxone Sodium (Rocephin) 2,000 mg in 70 mls @ 140 mls/hr IV NOW STA Stop: 06/01/22 16:03 Last Admin: 06/01/22 16:35 Dose: 140 mls/hr Documented By: JOANN Sodium Chloride (Nss 1000ml) 1,000 mls @ 999 mls/hr IV .Q1H1M ONE Stop: 06/01/22 16:34 Last Admin: 06/01/22 16:34 Dose: 999 mls/hr Documented By: JOANN ECG Rate (beats per minute): 82 Rhythm: normal sinus Findings: + PAC Additional Comments: ST wave depression in lateral leads COVID-19 Results Results COVID-19 Adm Lab Results: RBC 5.55 M/uL (3.93-5.22) H 06/01/22 WBC 14.68 K/ul (4.8-10.8) H 06/01/22 Hgb 15.5 g/dl (12.0-16.0) 06/01/22 Hct 45.7 % (34.1-44.9) H 06/01/22 Plt Count 246 K/uL (130-400) 06/01/22 Neutrophils (%) (Auto) 85.7 % 06/01/22 Lymphocytes (%) (Auto) 11.9 % 06/01/22 Monocytes # (Auto) 0.29 K/uL (0.24-0.82) 06/01/22 Eosinophils # (Auto) 0.00 K/uL (0-0.50) 06/01/22 Immature Granulocyte % (Auto) 0.3 % 06/01/22 Neutrophils # (Auto) 12.59 K/uL (1.4-6.5) H 06/01/22 Lymphocytes # (Auto) 1.74 K/uL (1.2-3.4) 06/01/22 Monocytes # (Auto) 0.29 K/uL (0.24-0.82) 06/01/22 Eosinophils # (Auto) 0.00 K/uL (0-0.50) 06/01/22 Basophils # (Auto) 0.02 K/uL (0-0.2) 06/01/22 Immature Granulocyte # (Auto) 0.04 K/uL (0.00-0.02) H 06/01 Na 148 mmol/L (136-145) H 06/01/22 K 2.6 mmol/L (3.5-5.1) L 06/01/22 Cl 93 mmol/L (98-107) L 06/01/22 CO2 31 mmol/L (21-32) 06/01/22 Anion Gap 24 (3-11) H 06/01/22 BUN 61 mg/dl (6-23) H 06/01/22 Creatinine 1.61 mg/dl (0.6-1.2) H 06/01/22 BUN/Creatinine Ratio 37.9 (10-20) H 06/01/22 Glucose Level 117 mg/dl (70-99(Fasting)) H 06/01/22 Ca 8.1 mg/dl (8.5-10.1) L 06/01/22 Total Bilirubin 1.8 mg/dl (0.2-1.0) H 06/01/22 AST/SGOT 24 U/L (13-39) 06/01/22 ALT/SGPT 19 U/L (7-52) 06/01/22 Alkaline Phosphatase 103 U/L (34-104) 06/01/22 Total Protein 6.6 gm/dl (6.0-8.3) 06/01/22 Albumin 3.3 gm/dl (3.4-5.0) L 06/01/22 Globulin 3.3 gm/dl (2.5-4.0) 06/01/22 Albumin/Globulin Ratio 1.0 (0.9-2) 06/01/22 Total CK 44 U/L (26-192) 06/01/22 PTT 26.7 Seconds (21.0-31.0) 06/01/22 INR 1.2 (0.9-1.1) H 06/01/22 SARS-CoV-2, RNA, NAAT NEGATIVE (NEGATIVE) 06/01/22 Chest X-Ray 06/01/22 Code Status & VTE Plan Code Status FULL CODE VTE Prophylaxis Plan VTE Prophylaxis will be ordered: Yes Supervising Physician Co-Signing Physician Notes Pt is a 81 y/o F with hx of HLD, HTN, CKD III admitted for severe dehydration with electrolytes abnormalities, UTI and Troponemia. At bedside: pt denied any acute CP, abd pain, Nausea or LARA. However she did have one episode of vomiting (NB) and her urine appeared bloody. Per pt she had multiple episodes of diarrhea and N/V 3 weeks ago PE: Cachectic, NAD HEENT: Exotropia Card: normal S1/s2, no murmur Lungs: CTA, no wheezing Abd: ND, NT, soft MSK: no edema Psych: AAOx3, normal affect A/P: Hypotension with severe dehydration & ARTIE -likely due to recent diarrhea & vomiting with decreased PO intake -BP improved with NS bolus --- s/p 3L --- will continue the pt on NS 80 cc/hr -due to episode of vomiting will continue liquid diet for now -LA is improving -admit to tele -will trend BMP -PT/OT Multiple Electrolytes abnormalities: -high Na+, Low K+ and Cl -likely 2/2 Diarrhea/vomiting with dehydration -will replete K+ and get BMP q6hrs -admit to tele Elevated Trop: -initial EKG showed possible ST depression on V3 and V4 ----repeat EKG did not show ST depression on V3, V4 -pt is asymptomatic -likely demand ischemia -will trend trop -Echo -Cardiology consult -EKG AM UTI with Mild thickening within the colon on CT abd: -will continue Zosyn for now --- Depending on pts response will the abx Agree with A/P by Renata Paz PA-C
[2022-06-01 17:26] LABS: Bilirubin Urine 3+ (Negative)
--- NOTE | 2022-06-01 17:30 | Electrocardiogram Report ---
Test Reason : Blood Pressure : / mmHG Vent. Rate : 110 BPM Atrial Rate : 110 BPM P-R Int : 134 ms QRS Dur : 088 ms QT Int : 378 ms P-R-T Axes : 085 -16 149 degrees QTc Int : 511 ms Sinus tachycardia Low voltage QRS Abnormal ECG No previous ECGs available Confirmed by Zack Lopez ([id number]) on 06/01/2022 5:29:54 PM Referred By: Confirmed By:Zack Lopez
[2022-06-01] MEDS ORDERED: POTASSIUM CHLORIDE / WTR 10 MEQ/100 ML PLCT IV ONE (17:32)
[2022-06-01] MEDS ORDERED: PROMETHAZINE HCL 6.25 MG in SODIUM CHLORIDE 0.9% 50 ML IV PRN (19:39)
[2022-06-01] MEDS ORDERED: POLYETHYLENE (MIRALAX) 17 GM PACK PO PRN (19:39)
[2022-06-01] MEDS ORDERED: ACETAMINOPHEN 325 MG TAB PO PRN (19:39)
[2022-06-01] MEDS ORDERED: ALUMINUM/MAGNESIUM SUSP 30 ML UDC PO PRN (19:39)
[2022-06-01] MEDS ORDERED: MAGNESIUM HYDROXIDE SUSP 30 ML UDC PO PRN (19:39)
[2022-06-01] MEDS ORDERED: Patient's HEIGHT &/or WEIGHT Needed SCH (20:00)
[2022-06-01] MEDS: NSS + 20MEQ KCL 20 MEQ/1,000 ML BAG IV SCH (20:36)
[2022-06-01] MEDS: HEPARIN SOD 5,000 UNIT/0.5 ML VIAL SQ SCH (21:16)
[2022-06-01 22:35] LABS: Anion Gap 12 (3-11); BUN Creatinine Ratio 41.7 (10-20); Blood Urea Nitrogen 45 mg/dl (6-23); Calcium 6.3 mg/dl (8.5-10.1); Carbon Dioxide 27 mmol/L (21-32); Chloride 109 mmol/L (98-107); Est GFR (Non-African American) 47.4 ml/min; Glucose 126 mg/dl (70-99(Fasting)); Potassium 2.9 mmol/L (3.5-5.1); Sodium 148 mmol/L (136-145)
[2022-06-01 22:42] LABS: Troponin I High Sensitivity 93.8 pg/ml (0-14)
[2022-06-02] MEDS: POTASSIUM CHLORIDE / WTR 10 MEQ/100 ML PLCT IV SCH ×6 (00:29→10:29)
[2022-06-02] MEDS ORDERED: PIPERACILLIN/TAZOBACTAM 3.375 GM in DEXTROSE 5% 100 ML IV SCH (02:00)
[2022-06-02 05:38] LABS: Albumin Level 2.5 gm/dl (3.4-5.0); BUN Creatinine Ratio 43.7 (10-20); Bilirubin,Total 1.1 mg/dl (0.2-1.0); Calcium 6.8 mg/dl (8.5-10.1); Creatinine Clr Calc Pharmacy 31.2 ml/min; Est GFR (African American) 71.4 ml/min; Est GFR (Non-African American) 61.6 ml/min; Globulin 2.4 gm/dl (2.5-4.0); Magnesium 1.7 mg/dl (1.7-2.4); Total Protein 4.9 gm/dl (6.0-8.3)
[2022-06-02 05:39] LABS: Potassium 2.3 mmol/L (3.5-5.1)
[2022-06-02] MEDS ORDERED: POTASSIUM CHLORIDE CRTAB 20 MEQ TABCR PO STA (05:53)
[2022-06-02] MEDS ORDERED: POTASSIUM CHLORIDE 20 MEQ/15 ML UDC PO STA (05:55)
[2022-06-02 05:56] LABS: Troponin I High Sensitivity 77.1 pg/ml (0-14)
[2022-06-02 07:05] LABS: BUN Creatinine Ratio 45.7 (10-20); Calcium 6.9 mg/dl (8.5-10.1); Creatinine Clr Calc Pharmacy 33.6 ml/min; Est GFR (African American) 77.8 ml/min; Est GFR (Non-African American) 67.2 ml/min; Potassium 2.5 mmol/L (3.5-5.1)
[2022-06-02 07:21] LABS: Basophils # (auto) 0.01 K/uL (0-0.2); Basophils % (auto) 0.1 %; Hematocrit (blood only) 33.1 % (34.1-44.9); Hemoglobin 11.4 g/dl (12.0-16.0); Immature Granulocytes # (auto) 0.03 K/uL (0.00-0.02); Immature Granulocytes % (auto) 0.3 %; Lymphocytes # (auto) 1.28 K/uL (1.2-3.4); Lymphocytes % (auto) 12.2 %; Mean Corpuscular Hemoglobin 28.1 pg (25.0-34.0); Mean Corpuscular Hgb Conc 34.4 g/dL (32.0-36.0); Mean Corpuscular Volume 81.5 fL (80.0-100.0); Mean Platelet Volume 10.5 fL (9.4-12.3); Monocytes # (auto) 0.17 K/uL (0.24-0.82); Monocytes % (auto) 1.6 %; Neutrophils # (auto) 9.03 K/uL (1.4-6.5); Neutrophils % (auto) 85.8 %; Platelet Count 128 K/uL (130-400); RDW Coefficient of Variation 13.8 % (11.5-14.5); RDW Standard Deviation 40.7 fL (36.4-46.3); Red Blood Count 4.06 M/uL (3.93-5.22); White Blood Count 10.52 K/ul (4.8-10.8)
--- NOTE | 2022-06-02 09:10 | Cardiology Consultation ---
Date of Consultation June 02, 2022 Assessment & Plan (1) Elevated troponin: (2) ARTIE (acute kidney injury): (3) Hypokalemia: (4) Lactic acidosis: (5) UTI (urinary tract infection): (6) Sepsis: (7) CKD (chronic kidney disease) stage 3, GFR 30-59 ml/min: Plan elevated troponin in the setting of severe metabolic derangements/urosepsis including acute renal failure no cardiac complaints no ischemic ekg changes this does not represent myocardial ischemia no further cardiac testing or intervention necessary at this time pt is severely malnourished, cachectic with poor personal hygiene it is also documented that she is taking care of her who is more complex than her believe placement would be the most beneficial/humane option for her if she would be agreeable she is also a full code which would be futile I have asked our palliative care colleagues for their aid in goals of care History of Present Illness Reason for Consultation: elevated troponin Requesting Physician: Dr. Catalan Attending Physician: Jeanine Catalan MD History of Present Illness It was my pleasure to see Mrs. Haywood in cardiac consultation today June 02, 2022. She is a very pleasant yet severely malnourished and under cared for 81-year-old woman who presented to [facility] with reports of fatigue and weakness. She states that she has been completely bedbound for 3 weeks now. She says that she is too weak to get up. She had multiple episodes of diarrhea, vomiting and dysuria. She has not eaten much in that time. She denies any cardiac complaints of chest pain, shortness of breath, palpitations, lightheadedness, dizziness or syncope. Upon arrival emergency department she was found to have severe urinary tract infection along with complex metabolic derangements and a minimally elevated high-sensitivity troponin, cardiology was consulted. Allergies Allergy/AdvReac Type Severity Reaction Status Date / Time No Known Allergies Allergy Unverified 06/01/22 17:01 Home Medications Medication Instructions Recorded Confirmed Type cholecalciferol (vitamin D3) 50 50 mcg PO DAILY 06/01/22 06/01/22 History mcg (2,000 unit) tablet (Vitamin D3) multivitamin 1 tab PO DAILY 06/01/22 06/01/22 History Patient History Medical History CKD (chronic kidney disease) stage 3, GFR 30-59 ml/min Esotropia of right eye HLD (hyperlipidemia) HTN (hypertension) Surgical History Hx of bilateral cataract extraction Hx of fracture of patella Family History Mother Progressive supranuclear palsy Father Sepsis Cancer Social History Smoking Status: Never smoker Hx Alcohol Use: No Hx Substance Use: No Preferred Language: Romansh Communication Ability: Effective Airport Location Manager Required: No Beliefs That Will Affect Care: None marital status: Current Living Situation: Spouse Other Information That Helps Us Care for You: No Feels Safe at Home: Yes Safety Concerns: Feels Safe At This Time Assistive Devices: Walker and Wheelchair Review of Systems Review of Systems: All systems reviewed & are unremarkable except as noted in HPI & below Physical Exam Physical Exam: General: Awake, alert and oriented x 3. No acute distress. HEENT: Normocephalic, atraumatic. Pupils equal, round and reactive to light and accommodation. Extraocular muscles are intact. Anicteric sclera. Moist mucous membranes. Neck: No JVD. No bruit. Cardiovascular: Regular. Positive S-4. Normal S-1 and S-2. No S-3. 3/6 mid to late systolic ejection murmur, greatest at the right sternal border, second intercostal space with radiation to the bilateral carotids. No rubs. Pulmonary: Clear to auscultation bilaterally. No rales, rhonchi, or wheezing. Abdomen: Bowel sounds x 4, soft. No rebound, guarding or tenderness. No organomegaly. Extremities: No clubbing, cyanosis or edema. +2 pedal pulses bilaterally. Skin: Warm and dry. Results & Data ([facility]) Vital Signs (Past 12 Hours) Vital Signs Temp Pulse Pulse Resp BP BP Pulse Ox 06/02/22 08:09 68 06/02/22 07:59 06/02/22 07:25 36.5 C 75 13 103/68 100 06/02/22 04:36 36.4 C L 72 16 116/81 100 06/01/22 23:40 36.3 C L 84 18 111/66 98 06/01/22 23:30 O2 Del Method 06/02/22 08:09 06/02/22 07:59 Room Air 06/02/22 07:25 Room Air 06/02/22 04:36 Room Air 06/01/22 23:40 Room Air 06/01/22 23:30 Room Air
[2022-06-02] MEDS: HEPARIN SOD 5,000 UNIT/0.5 ML VIAL SQ SCH ×2 (09:20→20:27)
[2022-06-02] MEDS: SODIUM CHLORIDE 0.45 % 1,000 ML IV SCH (09:21)
[2022-06-02] MEDS: MAGNESIUM SULFATE / D5W 1 GM/100 ML BAG IV SCH ×2 (09:22→12:01)
[2022-06-02] MEDS: NSS + 20MEQ KCL 20 MEQ/1,000 ML BAG IV SCH (09:32)
[2022-06-02 09:37] LABS: iSTAT Creatinine 1.5 mg/dl (0.6-1.3); iSTAT Hemoglobin 15.6 g/dl (12.0-16.0); iSTAT Ionized Calcium 0.92 mmol/l (1.12-1.32); iSTAT Potassium 2.2 mmol/L (3.3-5.0)
[2022-06-02] MEDS: PIPERACILLIN/TAZOBACTAM 3.375 GM in DEXTROSE 5% 100 ML IV SCH ×2 (11:09→17:12)
--- NOTE | 2022-06-02 14:28 | Hospitalist Progress Note ---
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 She has not seen a doctor in a while. She is being managed for the following: Severe sepsis POA likely secondary to UTI versus possible colitis versus both Elevated blood lactic acid level At presentation: HR 105, WBC 14.68K, UA suggestive of UTI, CTAP suggestive of colitis. Lactic acid 7.0, status post IV fluid in the ED. CPK normal. Admitting UA suggestive of UTI, follow-up final culture, GNB on preliminary Follow-up admitting blood culture Admitting CTAP with mild thickening within the colon suggestive of infectious versus inflammatory colitis. Continue with Zosyn 06/01. Continue with IV fluid. Advance diet as tolerated, consider discontinuing IV fluid if diet improves. Patient afebrile, WBC trending down, lactate trending down. Electrolytes abnormalities: Hypokalemia, hypernatremia Admitting potassium of 2.6, sodium of 148 Likely secondary to decreased p.o. intake and free water deficit on the background volume contraction with vomiting and diarrhea. BMP every 6 hours, IV fluids changed to half NS at 75 mils an hour, follow BMP for adjusting IV fluid. ARTIE on CKD stage III: Baseline creatinine around 1.0, admitting BUN/creatinine 61 and 1.61, continue with IV fluids, follow BMP Unkempt nails: Podiatry consulted. Elevated troponin QTC prolongation Admitting troponin of 116.4, down trended; EKG with no ischemic changes Patient denies chest pain, likely demand in the setting of sepsis 06/02 echo: EF 55 to 60%, grade 1 diastolic dysfunction, no significant valvular disease. QTC prolonged, avoid QTC prolonging drugs HTN/HLD pt previously prescribed lisinopril and atorvastatin but pt not taking DVT ppx: SQ heparin bid Dispo: med tele, pt needs CM involvement as pt not caring for self at home FULL CODE PCP: [facility] Admission and Anticipated Discharge Date Admission Date: June 01, 2022 Subjective Patient seen and examined at bedside as a follow-up of severe sepsis likely secondary to UTI and possible colitis, lactic acidosis, electrolyte abnormalities, ARTIE with CKD. Patient was lying in bed, on room air, no new acute events overnight per RN, cachectic looking, unkempt toenails, very poor appetite per RN, denies headache or dizziness or chest pain or palpitation or belly pain. Patient reports weakness and inability to walk. Patient was incontinent of stool overnight per RN. Physical Exam Physical Exam: GENERAL: Alert and oriented x2. NAD, on RA. Cachectic looking. Ill/weak/frail weak looking. HEENT: No pallor, no icterus. Pupils equal, round and reactive to light. Oral mucosa moist. NECK: No JVD, no neck masses. HEART: S1 and S2 heard. Regular rate and rhythm. No murmur, no gallop. RESPIRATORY SYSTEM: Normal AP diameter. No accessory muscle use. No wheezing, no crackles. ABDOMEN: Soft, bowel sounds present, nontender, no distention. CENTRAL NERVOUS SYSTEM: No facial droop. Speech is clear. Obeys simple commands. Moves extremities. EXTREMITIES: No edema, no erythema seen. Results & Data Results & Data ([facility]) Vital Signs (Past 12 Hours) Vital Signs Temp Pulse Pulse Resp BP BP Pulse Ox 06/02/22 11:18 36.4 C L 79 14 102/65 98 06/02/22 08:09 68 06/02/22 07:59 06/02/22 07:25 36.5 C 75 13 103/68 100 06/02/22 04:36 36.4 C L 72 16 116/81 100 O2 Del Method 06/02/22 11:18 Room Air 06/02/22 08:09 06/02/22 07:59 Room Air 06/02/22 07:25 Room Air 06/02/22 04:36 Room Air
[2022-06-02 15:56] LABS: Hematocrit (blood only) 34.4 % (34.1-44.9); Hemoglobin 11.9 g/dl (12.0-16.0)
[2022-06-02 16:27] LABS: Calcium 7.1 mg/dl (8.5-10.1); Creatinine Clr Calc Pharmacy 39.4 ml/min; Est GFR (African American) 92.9 ml/min; Est GFR (Non-African American) 80.1 ml/min; Potassium 3.3 mmol/L (3.5-5.1)
--- NOTE | 2022-06-02 16:39 | Electrocardiogram Report ---
Test Reason : Blood Pressure : / mmHG Vent. Rate : 082 BPM Atrial Rate : 082 BPM P-R Int : 128 ms QRS Dur : 078 ms QT Int : 428 ms P-R-T Axes : 081 007 192 degrees QTc Int : 500 ms Sinus rhythm with Premature atrial complexes Low voltage QRS Nonspecific T wave abnormality Abnormal ECG When compared with ECG of 01-JUN-2022 14:46, Premature atrial complexes are now Present Non-specific change in ST segment in Inferior leads Confirmed by Zack Lopez ([id number]) on 06/02/2022 4:39:16 PM Referred By: REFERRED SELF Confirmed By:Zack Lopez
--- NOTE | 2022-06-02 16:40 | Electrocardiogram Report ---
Test Reason : Blood Pressure : / mmHG Vent. Rate : 081 BPM Atrial Rate : 081 BPM P-R Int : 124 ms QRS Dur : 084 ms QT Int : 442 ms P-R-T Axes : 067 -09 180 degrees QTc Int : 513 ms Sinus rhythm with occasional Premature ventricular complexes Septal infarct (cited on or before 01-JUN-2022) T wave abnormality, consider lateral ischemia Prolonged QT Abnormal ECG When compared with ECG of 01-JUN-2022 17:01, (unconfirmed) Premature ventricular complexes are now Present Premature atrial complexes are no longer Present Confirmed by Zack Lopez ([id number]) on 06/02/2022 4:39:44 PM Referred By: REFERRED SELF Confirmed By:Zack Lopez
--- NOTE | 2022-06-02 16:45 | Electrocardiogram Report ---
Test Reason : Blood Pressure : / mmHG Vent. Rate : 071 BPM Atrial Rate : 071 BPM P-R Int : 102 ms QRS Dur : 068 ms QT Int : 562 ms P-R-T Axes : 071 -16 125 degrees QTc Int : 610 ms Poor data quality, interpretation may be adversely affected Sinus rhythm Low voltage QRS T wave abnormality, consider anterolateral ischemia Abnormal ECG When compared with ECG of 01-JUN-2022 17:29, (unconfirmed) Premature ventricular complexes are no longer Present QT has lengthened Confirmed by Zack Lopez ([id number]) on 06/02/2022 4:45:15 PM Referred By: REFERRED SELF Confirmed By:Zack Lopez
[2022-06-02] MEDS: THIAMINE HCL 100 MG TAB PO SCH (17:10)
[2022-06-03] MEDS: SODIUM CHLORIDE 0.45 % 1,000 ML IV SCH (01:00)
[2022-06-03] MEDS: PIPERACILLIN/TAZOBACTAM 3.375 GM in DEXTROSE 5% 100 ML IV SCH ×2 (01:00→09:31)
[2022-06-03] MEDS: THIAMINE HCL 100 MG TAB PO SCH (09:27)
[2022-06-03] MEDS: HEPARIN SOD 5,000 UNIT/0.5 ML VIAL SQ SCH ×2 (09:27→21:32)
[2022-06-03 09:39] LABS: Hematocrit (blood only) 30.4 % (34.1-44.9); Hemoglobin 10.5 g/dl (12.0-16.0); Mean Corpuscular Hemoglobin 27.9 pg (25.0-34.0); Mean Corpuscular Hgb Conc 34.5 g/dL (32.0-36.0); Mean Corpuscular Volume 80.9 fL (80.0-100.0); RDW Coefficient of Variation 13.9 % (11.5-14.5); RDW Standard Deviation 40.8 fL (36.4-46.3); Red Blood Count 3.76 M/uL (3.93-5.22); White Blood Count 7.35 K/ul (4.8-10.8)
[2022-06-03 09:46] LABS: BUN Creatinine Ratio 30.9 (10-20); Est GFR (African American) 100.5 ml/min; Est GFR (Non-African American) 86.7 ml/min; Magnesium 1.9 mg/dl (1.7-2.4); Potassium 2.6 mmol/L (3.5-5.1)
[2022-06-03] MEDS ORDERED: POTASSIUM PHOS 3 MMOL/1 ML INFUSION IV STA (09:46)
[2022-06-03 09:48] LABS: Mean Platelet Volume 10.5 fL (9.4-12.3); Platelet Count 100 K/uL (130-400); Platelet Estimate Decreased (Normal)
[2022-06-03] MEDS ORDERED: POTASSIUM PHOSPHATE 30 MMOL in SODIUM CHLORIDE 0.9% 500 ML IV ONE (11:00)
[2022-06-03] MEDS: POTASSIUM CHLORIDE CRTAB 20 MEQ TABCR PO SCH ×2 (11:06→21:32)
--- NOTE | 2022-06-03 11:19 | Cardiology Progress Note ---
Date of Service June 03, 2022 Assessment & Plan (1) Elevated troponin: (2) ARTIE (acute kidney injury): (3) Hypokalemia: (4) Lactic acidosis: (5) UTI (urinary tract infection): (6) Sepsis: (7) CKD (chronic kidney disease) stage 3, GFR 30-59 ml/min: Plan elevated troponin in the setting of severe metabolic derangements/urosepsis including acute renal failure no cardiac complaints no ischemic ekg changes this does not represent myocardial ischemia no further cardiac testing or intervention necessary at this time pt is severely malnourished, cachectic with poor personal hygiene it is also documented that she is taking care of her who is more complex than her believe placement would be the most beneficial/humane option for her if she would be agreeable she is also a full code which would be futile I have asked our palliative care colleagues for their aid in goals of care Ok to d/c telemetry from cardiac standpoint Admission and Anticipated Discharge Date Admission Date: June 01, 2022 Subjective Patient seen and examined, chart reviewed. Patient remains confused. States that she still feels very weak and lethargic. Telemetry reviewed: Normal sinus rhythm without arrhythmia Review of Systems Review of Systems: All systems reviewed & are unremarkable except as noted in HPI & below Physical Exam Physical Exam: General: Awake, alert and oriented x 3. No acute distress. HEENT: Normocephalic, atraumatic. Pupils equal, round and reactive to light and accommodation. Extraocular muscles are intact. Anicteric sclera. Moist mucous membranes. Neck: No JVD. No bruit. Cardiovascular: Regular. Positive S-4. Normal S-1 and S-2. No S-3. 3/6 mid to late systolic ejection murmur, greatest at the right sternal border, second intercostal space with radiation to the bilateral carotids. No rubs. Pulmonary: Clear to auscultation bilaterally. No rales, rhonchi, or wheezing. Abdomen: Bowel sounds x 4, soft. No rebound, guarding or tenderness. No orga nomegaly. Extremities: No clubbing, cyanosis or edema. +2 pedal pulses bilaterally. Skin: Warm and dry. Results & Data ([facility]) Vital Signs (Past 12 Hours) Vital Signs Temp Pulse Resp BP Pulse Ox O2 Del Method 06/03/22 07:31 36.3 C L 75 16 92/46 L 100 Room Air 06/03/22 04:56 36.4 C L 74 16 93/57 L 99 Room Air
--- NOTE | 2022-06-03 12:12 | Hospitalist Progress Note ---
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 She has not seen a doctor in a while. She is being managed for the following: Severe sepsis POA likely secondary to UTI versus possible colitis versus both Elevated blood lactic acid level At presentation: HR 105, WBC 14.68K, UA suggestive of UTI, CTAP suggestive of colitis. Lactic acid 7.0, status post IV fluid in the ED. CPK normal. Admitting UA suggestive of UTI, follow-up final culture, GNB on preliminary Follow-up admitting blood culture Admitting CTAP with mild thickening within the colon suggestive of infectious versus inflammatory colitis. Continue with Zosyn 06/01. Continue with IV fluid. Advance diet as tolerated, consider discontinuing IV fluid if diet improves. Patient afebrile, WBC trending down, lactate trending down. 06/03: afebrile, leukocytosis resolved Urine culture: E coli, pansensitive change Zosyn to Ceftri 2g IV daily Blood cultures: negative so far no diarrhea Electrolytes abnormalities: Hypokalemia, hypernatremia, Hypophosphatemia- severe Admitting potassium of 2.6, sodium of 148 Likely secondary to decreased p.o. intake and free water deficit on the background volume contraction with vomiting and diarrhea. BMP every 6 hours, IV fluids changed to half NS at 75 mils an hour, follow BMP for adjusting IV fluid. 06/03: likely from poor oral intake replace with IV Ph replaced with PO and IV K repeat at 4pm ARTIE on CKD stage III: Baseline creatinine around 1.0, admitting BUN/creatinine 61 and 1.61 -- resolved Unkempt nails: Podiatry consulted. Elevated troponin QTC prolongation Admitting troponin of 116.4, down trended; EKG with no ischemic changes Patient denies chest pain, likely demand in the setting of sepsis 06/02 echo: EF 55 to 60%, grade 1 diastolic dysfunction, no significant valvular disease. QTC prolonged, avoid QTC prolonging drug -- replace electrolytes monitor EKG HTN/HLD pt previously prescribed lisinopril and atorvastatin but pt not taking -- BP on the low side monitor DVT ppx: SQ heparin bid Dispo: med tele, pt needs CM involvement as pt not caring for self at home FULL CODE PCP: Danielle plan of care discussed with patient in detail and at length all questions answered she is understanding, agreeable, comfortable with the plan of care Admission and Anticipated Discharge Date Admission Date: June 01, 2022 Subjective ff up for weakness, poor oral intake, electrolyte abnormalities, UTI, etc seen resting in bed, comfortable states she feels very weak, fearful of falling when standing/ambulating no chest pain, dyspnea, palpitations, dizziness denies pain no fever/chills, nausea/vomiting, abdominal pain appetite improving today- ate at least 50% of breakfast denies dysphagia, odynophagia no other symptoms Review of Systems Review of Systems: all noted and negative except for above Physical Exam Physical Exam: General- oriented x 3, not in distress, speaks in sentences with no effort or accessory muscle use somewhat weak frail Head- atraumatic Eyes- PERRL, EOMI, anicteric ENT- oropharynx clear Neck- supple, no JVD, no adenopathy, no thyromegaly; carotids +2/2, no bruits appreciated Lungs- clear to auscultation bilaterally, no rales/wheezes Heart- normal rate, regular rhythm; no murmur, no gallop, no rub appreciated Abdomen- normal bowel sounds, nondistended, soft, nontender, no masses or hepatosplenomegaly Extremities- no pretibial edema, no calf tenderness; peripheral pulses intact Neuro- alert, oriented x 3; CN 2-12 grossly intact; motor 5/5 bilater ally;sensation 100% on all extremities; no other gross focal neurologic deficits Skin- warm & dry Results & Data Results & Data ([facility]) Vital Signs (Past 12 Hours) Vital Signs Temp Pulse Resp BP Pulse Ox O2 Del Method 06/03/22 11:37 36.5 C 61 18 92/59 L 95 Room Air 06/03/22 07:31 36.3 C L 75 16 92/46 L 100 Room Air 06/03/22 04:56 36.4 C L 74 16 93/57 L 99 Room Air all noted and reviewed including below
[2022-06-03] MEDS: POTASSIUM CHLORIDE / WTR 10 MEQ/100 ML PLCT IV SCH ×4 (12:53→17:24)
--- NOTE | 2022-06-03 16:30 | Palliative Care Consultation ---
Date of Consultation June 03, 2022 Assessment & Plan (1) Protein calorie malnutrition: Appetite improving. She is edentulous and does not have her dentures here at the hospital. (2) Palliative care encounter: Laquita Sethi is pleasant and knows that she is in the hospital but doesn't know where or have any insight into her illness. She is not capable of decision making at this time. She did tell me that if she could not make decisions, she would want her , Rafael Haywood to do it. Her , Rafael, has visual and hearing impairments and does not drive. I was able to reach him at his cell phone number which is [phone], which is his cell phone number. The number on the chart is Laquita Sethi's number and he is not able to hear on that phone. He has been updated on Laquita Sethi's condition by her sister, Jaqui. He is very grateful for the care that she is receiving. He told me that he would like us to get her back home to him. I explained that Laquita Sethi was very ill when she came to the hospital and is still ill. She would likely need placement on discharge which he is agreeable to. His preference would be [facility] in [place] because he would be able to visit her there. I asked him if Laquita Sethi had an advance directive and he told me that she has a living will which is on file in Dr. Santos's office, her PCP. There is a copy of the document on her chart which I reviewed. It indicates that she would not want life support if she had a terminal condition, irreversible brain damage or were dying. I asked Mr. Haywood what his understanding of her wishes is. He told me that she did not want to be kept alive on machines. She would not want intubation or ventilator support. He thinks that she had said that she would be ok with "those shocks" if needed. Code status changed to reflect her wishes. History of Present Illness Reason for Consultation: goals of care Requesting Physician: Dr. Harris Attending Physician: Hector Avalos MD History of Present Illness 81 yo lady who lives with her in an apartment in [place]. She was admitted with protein calorie malnutrition, lactic acidosis, ARTIE, hypokalemia, hypophosphatemia, UTI and sepsis. She has apparently not been eating at home. She has some confusion but tells me that she hasn't felt like eating for several weeks. She denies nausea or abdominal pain. Her reports that he could not get her to eat and that she was only drinking Pepsi. She became more weak, was bedbound and incontinent. He called 911 and she was admitted to the hospital. Her mental status has improved since admission but she is not oriented to place or time and does not have any insight into her illness. Allergies Allergy/AdvReac Type Severity Reaction Status Date / Time No Known Allergies Allergy Unverified 06/01/22 17:01 Home Medications Medication Instructions Recorded Confirmed Type cholecalciferol (vitamin D3) 50 50 mcg PO DAILY 06/01/22 06/01/22 History mcg (2,000 unit) tablet (Vitamin D3) multivitamin 1 tab PO DAILY 06/01/22 06/01/22 History Patient History Medical History CKD (chronic kidney disease) stage 3, GFR 30-59 ml/min Esotropia of right eye HLD (hyperlipidemia) HTN (hypertension) Surgical History Hx of bilateral cataract extraction Hx of fracture of patella Family History Mother Progressive supranuclear palsy Father Sepsis Cancer Social History Smoking Status: Never smoker Hx Alcohol Use: No Hx Substance Use: No Preferred Language: Azeri Communication Ability: Impaired 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 Beliefs That Will Affect Care: None marital status: Current Living Situation: Spouse How many Children do You have: 0 Other Information That Helps Us Care for You: No Feels Safe at Home: Yes Safety Concerns: Feels Safe At This Time Assistive Devices: Walker Review of Systems Review of Systems: ESAS Pain 0/3 Nausea 0/3 Dyspnea 0/3 Anorexia 1/3 eating about 50% of meals Drowsiness 0/3 PPS 30% Physical Exam Constitutional: + thin and + frail appearing ENMT: Mouth: oral mucous membranes not dry Respiratory: normal respiratory effort; no labored breathing Gastrointestinal (Abdomen): nontender, nondistended Musculoskeletal: Extremities: + muscle atrophy Neurologic: awake and + confused Psychiatric: Orientation: oriented to person; + not oriented to place and + not oriented to time Results & Data ([facility]) Vital Signs (Past 12 Hours) Vital Signs Temp Pulse Pulse Resp BP Pulse Ox O2 Del Method 06/03/22 14:29 73 06/03/22 06:08 58 L 06/03/22 12:30 Room Air 06/03/22 11:37 97.7 F 61 18 92/59 L 95 Room Air 06/03/22 07:31 97.3 F L 75 16 92/46 L 100 Room Air 06/03/22 04:56 97.5 F L 74 16 93/57 L 99 Room Air PG Care Time/CCT Total # of Minutes Spent Total Time Spent: 60 Total Time Spent with Patient: Total time spent is greater than 50% in coordination of care (as documented) at patient's floor/unit and/or counseling patient:goals of care, surrogate decision maker, code status, patient and family education and support. Coding Level of Care Code 48040 Initial Inpt Care Lvl 2 Diagnoses Protein calorie malnutrition E46 Palliative care encounter Z51.5
[2022-06-03] MEDS: cefTRIAXone SODIUM 2,000 MG in DEXTROSE 5% 50 ML IV SCH (17:25)
[2022-06-03 21:01] LABS: BUN Creatinine Ratio 21.7 (10-20); Creatinine Clr Calc Pharmacy 46.8 ml/min; Est GFR (African American) 97.7 ml/min; Est GFR (Non-African American) 84.3 ml/min; Phosphorus 2.4 mg/dl (2.5-4.9); Potassium 3.7 mmol/L (3.5-5.1)
[2022-06-03] MEDS: POT PHOSPHATE MONOBASIC W/ SOD TAB PO SCH (22:40)
[2022-06-04] MEDS: POTASSIUM CHLORIDE CRTAB 20 MEQ TABCR PO SCH (08:00)
[2022-06-04] MEDS: POT PHOSPHATE MONOBASIC W/ SOD TAB PO SCH ×4 (08:00→20:15)
[2022-06-04] MEDS: THIAMINE HCL 100 MG TAB PO SCH (08:00)
[2022-06-04] MEDS: HEPARIN SOD 5,000 UNIT/0.5 ML VIAL SQ SCH ×2 (08:01→20:15)
[2022-06-04 08:28] LABS: BUN Creatinine Ratio 20.4 (10-20); Calcium 7.5 mg/dl (8.5-10.1); Creatinine Clr Calc Pharmacy 59.2 ml/min; Est GFR (African American) 104.4 ml/min; Est GFR (Non-African American) 90.1 ml/min; Magnesium 1.6 mg/dl (1.7-2.4); Phosphorus 2.1 mg/dl (2.5-4.9); Potassium 4.3 mmol/L (3.5-5.1)
[2022-06-04 09:02] LABS: Hemoglobin 10.9 g/dl (12.0-16.0); White Blood Count 5.96 K/ul (4.8-10.8)
[2022-06-04 09:03] LABS: Basophils # (auto) 0.01 K/uL (0-0.2); Basophils % (auto) 0.2 %; Eosinophils # (auto) 0.03 K/uL (0-0.50); Eosinophils % (auto) 0.5 %; Immature Granulocytes # (auto) 0.02 K/uL (0.00-0.02); Immature Granulocytes % (auto) 0.3 %; Lymphocytes # (auto) 1.72 K/uL (1.2-3.4); Lymphocytes % (auto) 28.9 %; Mean Corpuscular Hemoglobin 27.9 pg (25.0-34.0); Mean Corpuscular Hgb Conc 34.1 g/dL (32.0-36.0); Mean Corpuscular Volume 82.1 fL (80.0-100.0); Mean Platelet Volume 10.5 fL (9.4-12.3); Monocytes # (auto) 0.21 K/uL (0.24-0.82); Monocytes % (auto) 3.5 %; Neutrophils # (auto) 3.97 K/uL (1.4-6.5); Neutrophils % (auto) 66.6 %; Platelet Count 97 K/uL (130-400); RDW Coefficient of Variation 13.9 % (11.5-14.5); RDW Standard Deviation 41.1 fL (36.4-46.3)
--- NOTE | 2022-06-04 10:05 | Cardiology Progress Note ---
Date of Service June 04, 2022 Assessment & Plan (1) Elevated troponin: (2) ARTIE (acute kidney injury): (3) Hypokalemia: (4) Lactic acidosis: (5) UTI (urinary tract infection): (6) Sepsis: (7) CKD (chronic kidney disease) stage 3, GFR 30-59 ml/min: Plan elevated troponin in the setting of severe metabolic derangements/urosepsis including acute renal failure no cardiac complaints no ischemic ekg changes this does not represent myocardial ischemia no further cardiac testing or intervention necessary at this time Ok to d/c telemetry from cardiac standpoint We will sign off, please call with questions or concerns. Admission and Anticipated Discharge Date Admission Date: June 01, 2022 Subjective Patient seen and examined, chart reviewed. Appreciate input from our palliative care colleagues. States that she still feels very tired and fatigued with no energy. Denies any chest pain or shortness of breath. Review of Systems Review of Systems: All systems reviewed & are unremarkable except as noted in HPI & below Physical Exam Physical Exam: General: Awake, alert and oriented x 3. No acute distress. HEENT: Normocephalic, atraumatic. Pupils equal, round and reactive to light and accommodation. Extraocular muscles are intact. Anicteric sclera. Moist mucous membranes. Neck: No JVD. No bruit. Cardiovascular: Regular. Positive S-4. Normal S-1 and S-2. No S-3. 3/6 mid to late systolic ejection murmur, greatest at the right sternal border, second intercostal space with radiation to the bilateral carotids. No rubs. Pulmonary: Clear to auscultation bilaterally. No rales, rhonchi, or wheezing. Abdomen: Bowel sounds x 4, soft. No rebound, guarding or tenderness. No organomegaly. Extremities: No clubbing, cyanosis or edema. +2 pedal pulses bilaterally. Skin: Warm and dry. Results & Data ([facility]) Vital Signs (Past 12 Hours) Vital Signs Temp Pulse Resp BP BP Pulse Ox O2 Del Method 06/04/22 08:00 Room Air 06/04/22 07:32 36.5 C 83 18 100/62 97 Nasal Cannula 06/04/22 03:33 36.6 C 84 18 112/68 96 Room Air 06/03/22 23:13 36.7 C 83 18 99/61 L 96 Room Air
[2022-06-04] MEDS: MAGNESIUM OXIDE 400 MG TAB PO SCH ×2 (10:57→20:15)
--- NOTE | 2022-06-04 10:58 | Hospitalist Progress Note ---
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 She has not seen a doctor in a while. She is being managed for the following: Severe sepsis POA likely secondary to UTI versus possible colitis versus both Elevated blood lactic acid level At presentation: HR 105, WBC 14.68K, UA suggestive of UTI, CTAP suggestive of colitis. Lactic acid 7.0, status post IV fluid in the ED. CPK normal. Admitting UA suggestive of UTI, follow-up final culture, GNB on preliminary Follow-up admitting blood culture Admitting CTAP with mild thickening within the colon suggestive of infectious versus inflammatory colitis. Continue with Zosyn 06/01. Continue with IV fluid. Advance diet as tolerated, consider discontinuing IV fluid if diet improves. Patient afebrile, WBC trending down,lactate trending down. 06/04: afebrile, leukocytosis resolved Urine culture: E coli, pansensitive change Zosyn to Ceftri 2g IV daily Blood cultures: negative so far no diarrhea appeitite improving PT/OT eval pending Electrolytes abnormalities: Hypokalemia, hypernatremia, Hypophosphatemia- severe Admitting potassium of 2.6, sodium of 148 Likely secondary to decreased p.o. intake and free water deficit on the background volume contraction with vomiting and diarrhea. BMP every 6 hours, IV fluids changed to half NS at 75 mils an hour, follow BMP for adjusting IV fluid. 06/04: likely from poor oral intake Ph better, PO PH ordered K normal ARTIE on CKD stage III:Baseline creatinine around 1.0, admitting BUN/creatinine 61 and 1.61 -- resolved Unkempt nails: Podiatry consulted. Elevated troponin QTC prolongation Admitting troponin of 116.4, down trended; EKG with no ischemic changes Patient denies chest pain, likely demand in the setting of sepsis 06/02 echo: EF 55 to 60%, grade 1 diastolic dysfunction, no significant valvular disease. QTC prolonged, avoid QTC prolonging drug -- replace electrolytes monitor EKG HTN/HLD pt previously prescribed lisinopril and atorvastatin but pt not taking -- BP on the low side monitor DVT ppx:SQ heparin bid Dispo: med tele, pt needs CM involvement as pt not caring for self at home FULL CODE PCP: Danielle plan of care discussed with patient in detail and at length all questions answered she is understanding, agreeable, comfortable with the plan of care Admission and Anticipated Discharge Date Admission Date: June 01, 2022 Subjective ff up for weakness, UTI, etc seen resting in bed, comfortable in good spirits states she feels improved today compared to yesterday weakness improving still anxious to stand and ambulate, reassured no diarrhea appetite improving no chest pain, dyspnea, palpitations, dizziness no other symptoms Review of Systems Review of Systems: all noted and negative except for above Physical Exam Physical Exam: General- oriented x 3, not in distress, speaks in sentences with no effort or accessory muscle use frail Eyes- anicteric Neck- no JVD Lungs- clear BS BL Heart- normal rate, regular rhythm; no murmurs Abdomen- normal bowel sounds, nondistended, soft, nontender Extremities- no pretibial edema, no calf tenderness Neuro- alert, oriented x 3; no gross focal neurologic deficits Skin- warm & dry Results & Data Results & Data ([facility]) Vital Signs (Past 12 Hours) Vital Signs Temp Pulse Resp BP BP Pulse Ox O2 Del Method 06/04/22 08:00 Room Air 06/04/22 07:32 36.5 C 83 18 100/62 97 Nasal Cannula 06/04/22 03:33 36.6 C 84 18 112/68 96 Room Air 06/03/22 23:13 36.7 C 83 18 99/61 L 96 Room Air all noted and reviewed including below
--- NOTE | 2022-06-04 14:37 | Podiatry Consultation ---
Date of Consultation June 04, 2022 Assessment & Plan (1) Onychomycosis: Present on Admission?: Yes (2) Insufficiency, arterial, peripheral: Present on Admission?: Yes Plan Severe onychomycosis - Nails 1-5 b/l debrided in length and thickness without incident. Would recommend continued care on a [id number] basis to prevent long-term complications. Her nails were as bad as can be expected with several years of neglect. - If she is discharged to [facility], Dr. Frandy DPM will see her there as he provides podiatry care to their residents. - Thank you for the consult. We are happy to help when possible, though nails and calluses like these are often treatable on an outpatient basis after discharge, as well. History of Present Illness Reason for Consultation: thickened, elongated toenails Requesting Physician: Hector Avalos MD Attending Physician: Hector Avalos MD History of Present Illness patient was seen at bedside at the request of her hospitalist for evaluation and treatment of her thickened dystrophic elongated toenails. She is a poor historian though her note were reviewed her to seeing her. She seems to have had a lack of care for her nails for the last several years and recently has gotten worse with malnutrition and worsening dementia. Allergies Allergy/AdvReac Type Severity Reaction Status Date / Time No Known Allergies Allergy Unverified 06/01/22 17:01 Home Medications Medication Instructions Recorded Confirmed Type cholecalciferol (vitamin D3) 50 50 mcg PO DAILY 06/01/22 06/01/22 History mcg (2,000 unit) tablet (Vitamin D3) multivitamin 1 tab PO DAILY 06/01/22 06/01/22 History Patient History Medical History CKD (chronic kidney disease) stage 3, GFR 30-59 ml/min Esotropia of right eye HLD (hyperlipidemia) HTN (hypertension) Surgical History Hx of bilateral cataract extraction Hx of fracture of patella Family History Mother Progressive supranuclear palsy Father Sepsis Cancer Social History Smoking Status: Never smoker Hx Alcohol Use: No Hx Substance Use: No Preferred Language: Bangladeshi Communication Ability: Impaired [employer]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 Distal cooling noted. Atrophic skin noted with absent hair growth. No edema. Minimal varicosities. MSK: Decreased muscle strength and tone noted. No ambulation assessed. Contracted toes 2-5 noted. No pain on palpation of toes, though pain is noted through reaction to pain on debridement of her toenails. Neuro: Sensation difficult to assess given her cognitive state, though sensation seems globally decreased. Pain sensation diminished, but present Skin: Nails 1-5 b/l diffusely elongated and thickened, consistent with several years of having no care. Pain is noted on debridement consistent with length of the digits. No open lesions noted. Skin diffusely dry and cool, consistent with underlying vascular disease. Constitutional: + ill appearing, + cachectic, + altered mental status and + malnourished; no acute distress Eyes: PERRL, conjunctivae normal, anicteric sclerae ENMT: external ear and nose normal, oropharynx normal Mouth: + edentulous Neck: normal visual inspection Respiratory: normal respiratory effort; no respiratory distress Cardiovascular: Rate/Rhythm: regular rate and regular rhythm Extremities: normal capillary refill and + varicosities; no calf tenderness and no pedal edema Musculoskeletal: Head/Neck/Chest: normocephalic and head atraumatic Extremities: + limited ROM of extremities and + abnormal strength Skin: + turgor decreased, + skin atrophy, + dry skin, + nail abnormality, + nails discolored and + nails dystrophic; no ulcers Trauma: no evidence of skin trauma Neurologic: moves all extremities; + abnormal touch/pain/proprioception and + abnormal sensation to monofilament Psychiatric: Cognition: + recent memory not intact, + remote memory not intact and + language not intact Insight: + not good insight Results & Data ([facility]) Vital Signs (Past 12 Hours) Vital Signs Temp Pulse Resp BP Pulse Ox O2 Del Method 06/04/22 11:52 37.1 C 101 H 18 108/72 96 Room Air 06/04/22 08:00 Room Air 06/04/22 07:32 36.5 C 83 18 100/62 97 Nasal Cannula 06/04/22 03:33 36.6 C 84 18 112/68 96 Room Air
[2022-06-04] MEDS: cefTRIAXone SODIUM 2,000 MG in DEXTROSE 5% 50 ML IV SCH (17:15)
[2022-06-05] MEDS: THIAMINE HCL 100 MG TAB PO SCH (08:14)
[2022-06-05] MEDS: MAGNESIUM OXIDE 400 MG TAB PO SCH (08:14)
[2022-06-05] MEDS: HEPARIN SOD 5,000 UNIT/0.5 ML VIAL SQ SCH ×2 (08:14→20:33)
[2022-06-05] MEDS: POT PHOSPHATE MONOBASIC W/ SOD TAB PO SCH ×4 (08:14→20:29)
[2022-06-05 11:16] LABS: BUN Creatinine Ratio 25.5 (10-20); Calcium 8.1 mg/dl (8.5-10.1); Creatinine Clr Calc Pharmacy 61.7 ml/min; Est GFR (African American) 105.9 ml/min; Est GFR (Non-African American) 91.3 ml/min; Magnesium 1.4 mg/dl (1.7-2.4); Phosphorus 2.9 mg/dl (2.5-4.9); Potassium 3.8 mmol/L (3.5-5.1)
--- NOTE | 2022-06-05 16:59 | Hospitalist Progress Note ---
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 She has not seen a doctor in a while. She is being managed for the following: Severe sepsis POA likely secondary to UTI versus possible colitis versus both Elevated blood lactic acid level At presentation: HR 105, WBC 14.68K, UA suggestive of UTI, CTAP suggestive of colitis. Lactic acid 7.0, status post IV fluid in the ED. CPK normal. Admitting UA suggestive of UTI, follow-up final culture, GNB on preliminary Follow-up admitting blood culture Admitting CTAP with mild thickening within the colon suggestive of infectious versus inflammatory colitis. Continue with Zosyn 06/01. Continue with IV fluid. Advance diet as tolerated, consider discontinuing IV fluid if diet improves. Patient afebrile, WBC trending down,lactate trending down. 06/05 afebrile, leukocytosis resolved Urine culture: E coli, pansensitive change Zosyn to Ceftri 2g IV daily-antibiotic day 5 out of 7 Blood cultures: Negative x48 hours no diarrhea Appetite much better PT/OT eval: Maximal assist, [facility] Electrolytes abnormalities: Hypokalemia, hypernatremia, Hypophosphatemia- severe Admitting potassium of 2.6, sodium of 148 Likely secondary to decreased p.o. intake and free water deficit on the background volume contraction with vomiting and diarrhea. BMP every 6 hours, IV fluids changed to half NS at 75 mils an hour, follow BMP for adjusting IV fluid. 06/05 likely from poor oral intake Potassium and phosphorus now normal Replace magnesium with Slow-Mag twice daily ARTIE on CKD stage III:Baseline creatinine around 1.0, admitting BUN/creatinine 61 and 1.61 -- resolved Unkempt nails: Podiatry consulted, debridement performed today 06/05/2022 Elevated troponin QTC prolongation Admitting troponin of 116.4, down trended; EKG with no ischemic changes Patient denies chest pain, likely demand in the setting of sepsis 06/02 echo: EF 55 to 60%, grade 1 diastolic dysfunction, no significant valvular disease. QTC prolonged, avoid QTC prolonging drug -- replace electrolytes monitor EKG HTN/HLD pt previously prescribed lisinopril and atorvastatin but pt not taking -- BP improving monitor DVT ppx:SQ heparin bid Dispo: [facility] to [facility] when accepted FULL CODE PCP: Danielle plan of care discussed with patient in detail and at length all questions answered she is understanding, agreeable, comfortable with the plan of care Admission and Anticipated Discharge Date Admission Date: June 01, 2022 Subjective Follow-up for weakness, UTI, electrolyte abnormalities, etc. Seen resting in bed, sitting up, having lunch In good spirits, oriented x3 States she feels improved overall Appetite is great, weakness improving but still very anxious when standing, trying to ambulate No headache, dizziness, chest pain, shortness of breath or palpitations, abdominal pain, nausea vomiting No other issues or symptoms Review of Systems Review of Systems: all noted and negative except for above Physical Exam Physical Exam: General- oriented x 2, not in distress, speaks in sentences with no effort or accessory muscle use Eyes- anicteric Neck- no JVD Lungs- clear BS bilaterally, no wheezing or crackles noted Heart- normal rate, regular rhythm; no murmurs Abdomen- normal bowel sounds, nondistended, soft, nontender Extremities- no pretibial edema, no calf tenderness Neuro- alert, oriented x 2-3; no gross focal neurologic deficits Skin- warm & dry Results & Data Results & Data ([facility]) Vital Signs (Past 12 Hours) Vital Signs Temp Pulse Resp BP Pulse Ox O2 Del Method 06/05/22 14:33 36.8 C 90 16 116/72 97 Room Air 06/05/22 07:42 36.4 C L 90 16 126/78 97 Room Air all noted and reviewed including below
[2022-06-05] MEDS: cefTRIAXone SODIUM 2,000 MG in DEXTROSE 5% 50 ML IV SCH (17:40)
[2022-06-05] MEDS: MAGNESIUM CHLORIDE W/CALCIUM 64MG DELAYED REL TAB PO SCH (20:33)
[2022-06-06 07:34] LABS: Est GFR (African American) 103.7 ml/min; Est GFR (Non-African American) 89.5 ml/min; Magnesium 1.3 mg/dl (1.7-2.4); Phosphorus 3.8 mg/dl (2.5-4.9); Potassium 3.4 mmol/L (3.5-5.1)
[2022-06-06] MEDS: MAGNESIUM SULFATE / D5W 1 GM/100 ML BAG IV SCH ×2 (08:57→11:01)
[2022-06-06] MEDS: HEPARIN SOD 5,000 UNIT/0.5 ML VIAL SQ SCH ×2 (08:57→19:50)
[2022-06-06] MEDS: THIAMINE HCL 100 MG TAB PO SCH (08:58)
[2022-06-06] MEDS: POTASSIUM CHLORIDE CRTAB 20 MEQ TABCR PO SCH (08:58)
[2022-06-06] MEDS: MAGNESIUM CHLORIDE W/CALCIUM 64MG DELAYED REL TAB PO SCH ×2 (08:58→19:52)
[2022-06-06] MEDS: cefTRIAXone SODIUM 2,000 MG in DEXTROSE 5% 50 ML IV SCH (16:22)
--- NOTE | 2022-06-06 18:09 | Hospitalist Progress Note ---
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 She has not seen a doctor in a while. She is being managed for the following: Severe sepsis POA likely secondary to UTI versus possible colitis versus both Elevated blood lactic acid level At presentation: HR 105, WBC 14.68K, UA suggestive of UTI, CTAP suggestive of colitis. Lactic acid 7.0, status post IV fluid in the ED. CPK normal. Admitting UA suggestive of UTI, follow-up final culture, GNB on preliminary Follow-up admitting blood culture Admitting CTAP with mild thickening within the colon suggestive of infectious versus inflammatory colitis. Continue with Zosyn 06/01. Continue with IV fluid. Advance diet as tolerated, consider discontinuing IV fluid if diet improves. Patient afebrile, WBC trending down,lactate trending down. 06/06 afebrile, leukocytosis resolved Urine culture: E coli, pansensitive change Zosyn to Ceftri 2g IV daily-antibiotic day 6 out of 7 Blood cultures: Negative x48 hours no diarrhea Appetite much better PT/OT eval: Maximal assist, recommending [facility] facility Electrolytes abnormalities: Hypokalemia, hypernatremia, Hypophosphatemia- severe Admitting potassium of 2.6, sodium of 148 Likely secondary to decreased p.o. intake and free water deficit on the background volume contraction with vomiting and diarrhea. BMP every 6 hours, IV fluids changed to half NS at 75 mils an hour, follow BMP for adjusting IV fluid. 06/06 likely from poor oral intake Replace potassium and magnesium with oral and IV ARTIE on CKD stage III:Baseline creatinine around 1.0, admitting BUN/creatinine 61 and 1.61 -- resolved Unkempt nails: Podiatry consulted, debridement performed today 06/05/2022 Elevated troponin QTC prolongation Admitting troponin of 116.4, down trended; EKG with no ischemic changes Patient denies chest pain, likely demand in the setting of sepsis 06/02 echo: EF 55 to 60%, grade 1 diastolic dysfunction, no significant valvular disease. QTC prolonged, avoid QTC prolonging drug -- replace electrolytes monitor EKG HTN/HLD pt previously prescribed lisinopril and atorvastatin but pt not taking -- BP improving monitor DVT ppx:SQ heparin bid Dispo: Transition to [facility] facility when accepted FULL CODE PCP: Danielle plan of care discussed with patient in detail and at length all questions answered she is understanding, agreeable, comfortable with the plan of care Admission and Anticipated Discharge Date Admission Date: June 01, 2022 Subjective Follow-up for weakness, etc. Sitting up in bed, comfortable, not distressed Good spirits States she feels fine overall Weakness improving no chest pain, dyspnea, palpitations, dizziness No other symptoms Review of Systems Review of Systems: all noted and negative except for above Physical Exam Physical Exam: General- oriented x 2-3, not in distress, speaks in sentences with no effort or accessory muscle use Eyes- anicteric Neck- no JVD Lungs- clear breath sounds bilaterally Heart- normal rate, regular rhythm; no murmurs Abdomen- normal bowel sounds, nondistended, soft, nontender Extremities- no pretibial edema, no calf tenderness Mild erythema left anterior queen, no warmth or tenderness Neuro- alert, oriented x 3; no gross focal neurologic deficits Skin- warm & dry Results & Data Results & Data ([facility]) Vital Signs (Past 12 Hours) Vital Signs Temp Pulse Resp BP Pulse Ox O2 Del Method 06/06/22 15:35 Room Air 06/06/22 14:20 36.4 C L 97 H 16 107/59 L 97 Room Air 06/06/22 06:51 36.6 C 97 H 16 108/69 97 Room Air all noted and reviewed including below
[2022-06-07 08:03] LABS: BUN Creatinine Ratio 28.1 (10-20); Creatinine Clr Calc Pharmacy 45.3 ml/min; Est GFR (African American) 95.6 ml/min; Est GFR (Non-African American) 82.5 ml/min; Magnesium 1.9 mg/dl (1.7-2.4); Phosphorus 3.2 mg/dl (2.5-4.9); Potassium 3.7 mmol/L (3.5-5.1)
[2022-06-07] MEDS: HEPARIN SOD 5,000 UNIT/0.5 ML VIAL SQ SCH ×2 (10:28→20:23)
[2022-06-07] MEDS: POTASSIUM CHLORIDE CRTAB 20 MEQ TABCR PO SCH (10:28)
[2022-06-07] MEDS: MAGNESIUM CHLORIDE W/CALCIUM 64MG DELAYED REL TAB PO SCH ×2 (10:28→20:23)
[2022-06-07] MEDS: THIAMINE HCL 100 MG TAB PO SCH (10:29)
[2022-06-07] MEDS: cefTRIAXone SODIUM 2,000 MG in DEXTROSE 5% 50 ML IV SCH (16:26)
--- NOTE | 2022-06-07 19:13 | Hospitalist Progress Note ---
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 She has not seen a doctor in a while. She is being managed for the following: Severe sepsis POA likely secondary to UTI, E coli At presentation: HR 105, WBC 14.68K, UA suggestive of UTI, CTAP suggestive of colitis. Lactic acid 7.0, status post IV fluid in the ED. CPK normal. Admitting UA suggestive of UTI, follow-up final culture, GNB on preliminary Follow-up admitting blood culture Admitting CTAP with mild thickening within the colon suggestive of infectious versus inflammatory colitis. Continue with Zosyn 06/01. Continue with IV fluid. Advance diet as tolerated, consider discontinuing IV fluid if diet improves. Patient afebrile, WBC trending down,lactate trending down. 06/07 afebrile, leukocytosis resolved Urine culture: E coli, pansensitive change Zosyn to Ceftri 2g IV daily-antibiotic day 7 out of 7 Blood cultures: Negative x48 hours no diarrhea Appetite much better PT/OT eval: Maximal assist, recommending [facility] facility Electrolytes abnormalities: Hypokalemia, hypernatremia, Hypophosphatemia- severe Admitting potassium of 2.6, sodium of 148 Likely secondary to decreased p.o. intake and free water deficit on the background volume contraction with vomiting and diarrhea. BMP every 6 hours, IV fluids changed to half NS at 75 mils an hour, follow BMP for adjusting IV fluid. 06/07 likely from poor oral intake Replaced with potassium and magnesium with oral and IV ARTIE on CKD stage III:Baseline creatinine around 1.0, admitting BUN/creatinine 61 and 1.61 -- resolved Unkempt nails: Podiatry consulted, debridement and clipping of nails performed 06/05/2022 Elevated troponin QTC prolongation Admitting troponin of 116.4, down trended; EKG with no ischemic changes Patient denies chest pain, likely demand in the setting of sepsis 06/02 echo: EF 55 to 60%, grade 1 diastolic dysfunction, no significant valvular disease. QTC prolonged, avoid QTC prolonging drug -- replace electrolytes monitor EKG HTN/HLD pt previously prescribed lisinopril and atorvastatin but pt not taking -- BP on the low normal side monitor DVT ppx:SQ heparin bid Dispo: Transition to [facility] facility when accepted FULL CODE PCP: Danielle plan of care discussed with patient in detail and at length all questions answered she is understanding, agreeable, comfortable with the plan of care Admission and Anticipated Discharge Date Admission Date: June 01, 2022 Subjective ff up for weakness, etc seen resting in bed, comfortable in good spirits states she feels fine overall weakness improving, appetite is good states she is afraid to stand and walk, reassured no chest pain, dyspnea, palpitations, dizziness no other symptoms Review of Systems Review of Systems: all noted and negative except for above Physical Exam Physical Exam: General- oriented x 3, not in distress, speaks in sentences with no effort or accessory muscle use Eyes- anicteric Neck- no JVD Lungs- clear BS bilaterally, no rales/wheezes Heart- normal rate, regular rhythm; no murmurs Abdomen- normal bowel sounds, nondistended, soft, nontender Extremities- no pretibial edema, no calf tenderness Neuro- alert, oriented x 3; no gross focal neurologic deficits Skin- warm & dry Results & Data Results & Data ([facility]) Vital Signs (Past 12 Hours) Vital Signs Temp Pulse Resp BP Pulse Ox O2 Del Method 06/07/22 08:00 Room Air 06/07/22 15:17 36.8 C 60 24 114/57 L 96 Room Air 06/07/22 07:48 36.4 C L 95 H 18 98/60 L 95 Room Air all noted and reviewed including below
[2022-06-08 08:25] LABS: BUN Creatinine Ratio 30.4 (10-20); Calcium 7.9 mg/dl (8.5-10.1); Creatinine Clr Calc Pharmacy 51.8 ml/min; Est GFR (African American) 99.9 ml/min; Est GFR (Non-African American) 86.2 ml/min; Magnesium 1.7 mg/dl (1.7-2.4); Phosphorus 3.2 mg/dl (2.5-4.9); Potassium 4.1 mmol/L (3.5-5.1)
--- NOTE | 2022-06-08 09:43 | Hospitalist Progress Note ---
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 She has not seen a doctor in a while. She is being managed for the following: Severe sepsis POA likely secondary to UTI, E coli At presentation: HR 105, WBC 14.68K, UA suggestive of UTI, CTAP suggestive of colitis. Lactic acid 7.0, status post IV fluid in the ED. CPK normal. Admitting UA suggestive of UTI, follow-up final culture, GNB on preliminary Follow-up admitting blood culture Admitting CTAP with mild thickening within the colon suggestive of infectious versus inflammatory colitis. 06/08 afebrile, leukocytosis resolved Urine culture: E coli, pansensitive completed course of Zosyn and Ceftri 2g IV daily x 7 days Blood cultures: Negative no diarrhea since admission Appetite much better, Boost ordered TID- patient drinking patient significantly improved, but still anxious with PT PT/OT eval: Maximal assist, recommending [facility] facility Fall Precautions Electrolytes abnormalities: Hypokalemia, hypernatremia, Hypophosphatemia- severe Admitting potassium of 2.6, sodium of 148 Likely secondary to decreased p.o. intake and free water deficit on the background volume contraction with vomiting and diarrhea. BMP every 6 hours, IV fluids changed to half NS at 75 mils an hour, follow BMP for adjusting IV fluid. 06/08 likely from poor oral intake Replaced with potassium and magnesium with oral and IV -- monitor BMP regularly ARTIE on CKD stage III Baseline creatinine around 1.0, admitting BUN/creatinine 61 and 1.61 -- resolved -- encourage oral fluid intake Unkempt nails -- Podiatry consulted, debridement and clipping of nails performed 06/05/2022 Elevated troponin QTC prolongation Admitting troponin of 116.4, down trended; EKG with no ischemic changes Patient denies chest pain, likely demand in the setting of sepsis 06/02 echo: EF 55 to 60%, grade 1 diastolic dysfunction, no significant valvular disease. QTC prolonged -- replaced electrolytes avoid QTC prolonging drug HTN/HLD pt previously prescribed lisinopril and atorvastatin but pt not taking -- BP on the low normal side monitor DVT ppx:SQ heparin givenbid Dispo: [facility] to [facility] ff up with Dr. Marmolejo in 1 week FULL CODE PCP: Danielle Admission and Anticipated Discharge Date Admission Date: June 01, 2022 Subjective ff up for UTI, weakness, etc seen resting in bed, comfortable states she feels good no chest pain, dyspnea, palpitations, dizziness weakness improving appetite has significantly improved since admission no other symptoms still very anxious with PT today, reassured Review of Systems Review of Systems: all noted and negative except for above Physical Exam 2 Physical Exam: General- oriented x 3, not in distress, speaks in sentences with no effort or accessory muscle use Eyes- anicteric Neck- no JVD Lungs- clear BS bilaterally, no rales/wheezes Heart- normal rate, regular rhythm; no murmurs Abdomen- normal bowel sounds, nondistended, soft, no tenderness Extremities- no pretibial edema, no calf tenderness LLE erythema on the queen- improving no warmth/tenderness Neuro- alert, oriented x 3; no gross focal neurologic deficits Skin- warm & dry Results & Data Results & Data ([facility]) Vital Signs (Past 12 Hours) Vital Signs Temp Pulse Resp BP Pulse Ox O2 Del Method 06/08/22 07:51 36.6 C 94 H 18 105/67 97 Room Air all noted and reviewed including below
--- NOTE | 2022-06-08 10:02 | Discharge Summary ---
Date of Service June 08, 2022 Admission HPI Per Admitting Provider This is an 81 yr old F who has a significant PMH of HTN, HLD, CKD-3 who presents to ED 2/2 to unable to get out of bed. She lives at home with her . EMS was summoned today. She admits to diarrhea 2-3 weeks ago that lasted 3-4 days. She also had vomiting. Last time she had a BM was 3 days ago and it was loose. She vomited in the room but denies feeling nausea at home. She denies any abdominal pain, chest pain, sob, cough, uri sx, f/c/s, dizziness, and lightheaded. Overall appetite is poor. When asked when she ate something last she said, "its been awhile." Hx obtained from pt but unsure if reliable. Kyle mckeon she has been in bed for the past week. Overall she states, "I feel great." Per ED Staff office of aging has been involved. Admission Exam Per Admitting Provider Cachectic, NAD HEENT: Exotropia Card: normal S1/s2, no murmur Lungs: CTA, no wheezing Abd: ND, NT, soft MSK: no edema Psych: AAOx3, normal affect Principal Diagnosis GENERALIZED WEAKNESS URINARY TRACT INFECTION MALNUTRITION Discharge Exam General- oriented x 3, not in distress, speaks in sentences with no effort or accessory muscle use Eyes- anicteric Neck- no JVD Lungs- clear BS bilaterally, no rales/wheezes Heart- normal rate, regular rhythm; no murmurs Abdomen- normal bowel sounds, nondistended, soft, no tenderness Extremities- no pretibial edema, no calf tenderness LLE erythema on the queen- improving no warmth/tenderness Neuro- alert, oriented x 3; no gross focal neurologic deficits Skin- warm & dry Discharge Data Allergies Allergy/AdvReac Type Severity Reaction Status Date / Time No Known Allergies Allergy Unverified 06/01/22 17:01 Consultations 06/01/22 16:38 ED Decision to Admit Stat 06/01/22 19:39 Consult Cardiology Routine 06/02/22 08:40 Consult Palliative Care Routine 06/02/22 14:32 Consult Podiatry Routine Ordered Studies 06/01/22 14:42 CT abd pelvis wo con Stat COMPARISON STUDY: None. FINDINGS: The lung bases are clear. No pneumoperitoneum. No pneumatosis. No fractures within the visualized osseous structures. Levoscoliosis of the lumbar spine. There is a large hiatus hernia containing the proximal stomach. The unenhanced liver, gallbladder, pancreas, spleen, and adrenal glands are unremarkable. There are few punctate left renal calculi. No ureteral calculi. No hydronephrosis. No retroperitoneal lymphadenopathy. Mild calcified plaque within the normal caliber abdominal aorta. The bladder is moderately distended. There is a large partially calcified uterine fibroid measuring 6.9 cm. There are few additional smaller calcified and noncalcified uterine fibroids. Suboptimal evaluation for bowel pathology due to the lack of intravenous and oral contrast. However, there is no evidence for bowel obstruction. Normal appendix. There appears a mild thickening within the splenic flexure of the colon, ascending colon, and proximal transverse colon. This is consistent with a nonspecific colitis. This favors an infectious or inflammatory process. IMPRESSION: 1. Mild thickening within the colon as described above likely representing an infectious or inflammatory colitis. 2. No evidence for bowel obstruction. 3. Distended bladder. 4. Fibroid uterus. 5. Left-sided nephrolithiasis. No hydronephrosis. 6. Large hiatus hernia. ACT 112: Negative or not required by law. Electronically signed by: Chad Ward M.D. 06/01/2022 4:[address] cervical spine wo con Stat COMPARISON STUDY: No priors. TECHNIQUE: CT scan of the cervical spine is performed from the skull base to the upper thoracic spine. Images are reviewed in the axial, sagittal, and coronal planes. IV contrast was not administered for this examination. A dose lowering technique was utilized adhering to the principles of ALARA. CT DOSE: 1070.21 mGy.cm FINDINGS: Skeletal structures: The skeletal structures are osteopenic. There is no evidence of fracture or subluxation involving the cervical spine. Vertebral body height and alignment are maintained. Anterior osteophytes are seen throughout. The odontoid process and lateral masses are intact. The atlantoaxial articulation is preserved noting productive degenerative change. The spinous processes appear intact. There is mild to moderate multilevel cervical spondylosis. Uncovertebral and facet arthropathy contribute to neural foraminal narrowing at several levels. Intervertebral discs: There is severe disc space narrowing at C3-C4 and C5-C6. Mild narrowing is seen at the remaining cervical levels. Central canal: Posterior disc osteophyte complexes at C3-C4, C5-C6, and C6-C7 may contribute to acquired compromise of the central canal. Soft tissues: The prevertebral and paraspinous soft tissues are within normal limits. Calvarium: The visualized calvarium at the skull base appears intact. Brain parenchyma: Partially visualized brain parenchyma at the skull base is within normal limits noting age-related involutional change. Sinuses and mastoids: The visualized paranasal sinuses are clear. The mastoid air cells are well pneumatized. Lung apices: Clear as visualized. IMPRESSION: 1. There is no evidence of fracture or subluxation involving the cervical spine. 2. Osteopenia and spondylotic change as above. ACT 112: Negative or not required by law. CT head/brain wo con Stat COMPARISON STUDY: No priors TECHNIQUE: Unenhanced axial CT scan of the brain is performed from the vertex to the skull base. A dose lowering technique was utilized adhering to the principles of ALARA. FINDINGS: Brain parenchyma: There is age-related involutional change noting mild subcortical and periventricular microangiopathic disease. There is no hemorrhage, mass effect, or evidence of acute territorial ischemia by CT criteria. Guerrero-white matter differentiation is preserved. No extra-axial fluid collection is seen. Ventricles, sulci, cisterns: Prominent secondary to involutional change. Intracranial vasculature: There is atherosclerotic calcification of the cavernous carotid arteries. Calvarium: The skeletal structures are osteopenic. No depressed calvarial fracture is identified. Sinuses and mastoids: The visualized paranasal sinuses are clear. The mastoid air cells are well pneumatized. Orbits: The bony orbits are grossly intact. There are bilateral ocular lens implants. IMPRESSION: There is no hemorrhage, mass effect, or evidence of acute territorial ischemia by CT criteria. ACT 112: Negative or not required by law. Hospital Course (1) Sepsis: (2) UTI (urinary tract infection): per previous attending notes with addendum: 81-year-old lady with PMH of HTN, HLD, CKD stage III presented to the ED 06/01 after being found at home unable to get out of bed for the past week [employer]. 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 She has not seen a doctor in a while. She is being managed for the following: Severe sepsis POA likely secondary to UTI, E coli At presentation: HR 105, WBC 14.68K, UA suggestive of UTI, CTAP suggestive of colitis. Lactic acid 7.0, status post IV fluid in the ED. CPK normal. Admitting UA suggestive of UTI, follow-up final culture, GNB on preliminary Follow-up admitting blood culture Admitting CTAP with mild thickening within the colon suggestive of infectious versus inflammatory colitis. 06/08 afebrile, leukocytosis resolved Urine culture: E coli, pansensitive completed course of Zosyn and Ceftri 2g IV daily x 7 days Blood cultures: Negative no diarrhea since admission Appetite much better, Boost ordered TID- patient drinking patient significantly improved, but still anxious with PT PT/OT eval: Maximal assist, recommending detention facility Fall Precautions Malnutrition Electrolytes abnormalities: Hypokalemia, hypernatremia, Hypophosphatemia- severe Admitting potassium of 2.6, sodium of 148 Likely secondary to decreased p.o. intake and free water deficit on the background volume contraction with vomiting and diarrhea. BMP every 6 hours, IV fluids changed to half NS at 75 mils an hour, follow BMP f or adjusting IV fluid. 06/08 likely from poor oral intake Replaced with potassium and magnesium with oral and IV Boost TID ordered, appetite significantly improved -- continue Boost TID monitor BMP regularly Acute Kidney Injury on CKD stage III Baseline creatinine around 1.0, admitting BUN/creatinine 61 and 1.61 -- resolved -- encourage oral fluid intake Unkempt nails -- Podiatry consulted, debridement and clipping of nails performed 06/05/2022 Elevated troponin QTC prolongation Admitting troponin of 116.4, down trended; EKG with no ischemic changes Patient denies chest pain, likely demand in the setting of sepsis 06/02 echo: EF 55 to 60%, grade 1 diastolic dysfunction, no significant valvular disease. QTC prolonged -- replaced electrolytes avoid QTC prolonging drug HTN/HLD pt previously prescribed lisinopril and atorvastatin but pt not taking -- Lisinopril stopped -- BP on the low normal side monitor DVT ppx:SQ heparin given bid Dispo: Transition to detention facility ff up with Dr. Marmolejo in 1 week FULL CODE PCP: Danielle Total Time Total Time Spent Total Time Spent (In Minutes): >30 minutes Discharge Plan Discharge Items Patient Disposition: Transfer [facility] Fac Reason For Visit: LACTIC ACIDOSIS, HYPOKALEMIA, ARTIE, ELEVATED TROP Discharge Diagnosis: GENERALIZED WEAKNESS URINARY TRACT INFECTION Activity: As commented below Activity Comment: CONTINUE PT/OT, ALWAYS WITH ASSISTANCE, FALL PRECAUTIONS Lifting: Wait until after follow-up appointment Exercise/Sports: Wait until after follow-up appointment Non-emergency contact: Primary Care Provider Call non-emergency contact if: you have any medication questions, your symptoms worsen, your pain is not controlled, your pain is worsening, your pain is unusual for you, your pain is concerning for you and you have a fever Follow-up/Referrals: Tam Santos MD [Outside Practitioners] - PCP,NO [Primary Care Provider] - Diet: Regular Diet Comment: BOOST TID Addtl Attending Provider Instructions: PLEASE REFER TO [facility]PANYING [facility]OSPITAL DISCHARGE SUMMARY. Pending Studies at Discharge: No Stand-Alone Forms: My [employer], Smoking Cessation Skilled Items Patient informed of condition?: Yes DNR: No Discharge Level of Care: Skilled Communicable Disease: No Discharge Prognosis: Stable Lines: None Urinary Catheter: No Medications and DC Order Prescriptions: New Mag 64 64 mg Tablet,Delayed Release (Dr/Ec) 64 mg PO BID 14 Days Qty: 28 1RF potassium chloride 20 mEq Tablet,Er Particles/Crystals 20 meq PO DAILY 14 Days Qty: 14 1RF Continued multivitamin [One A Day Vitamin] Tablet 1 tab PO DAILY cholecalciferol (vitamin D3) [Vitamin D3] 50 mcg (2,000 unit) Tablet 50 mcg PO DAILY Discharge Orders: Discharge Order (Routine); Ordered 06/08/22 Ordered By: Hector Avalos Admission Data Admit Date/Time: 06/01/22 16:57 Attending Provider: Hector Avalos Admit Provider: Erika Sandra Primary Care Provider: PCP,NO Other Providers: Jeanine Catalan ; [facility] ; [place] ; Erika Sandra ; Cecilio Contreras ; Medina Morel ; Silver Sanches
[2022-06-08] MEDS: MAGNESIUM CHLORIDE W/CALCIUM 64MG DELAYED REL TAB PO SCH (10:27)
[2022-06-08] MEDS: THIAMINE HCL 100 MG TAB PO SCH (10:27)
[2022-06-08] MEDS: HEPARIN SOD 5,000 UNIT/0.5 ML VIAL SQ SCH (10:27)
[2022-06-08] MEDS: POTASSIUM CHLORIDE CRTAB 20 MEQ TABCR PO SCH (10:27)
--- NOTE | 2022-06-08 12:42 | Electrocardiogram Report ---
Test Reason : Blood Pressure : / mmHG Vent. Rate : 101 BPM Atrial Rate : 101 BPM P-R Int : 128 ms QRS Dur : 070 ms QT Int : 328 ms P-R-T Axes : 060 -09 087 degrees QTc Int : 425 ms Sinus tachycardia Diffuse Minor Nonspecific T wave abnormality Abnormal ECG When compared with ECG of 02-JUN-2022 05:45, T wave inversion no longer evident in Anterior leads Confirmed by Shaquille Nj ([id number]) on 06/08/2022 12:41:35 PM Referred By: REFERRED SELF Confirmed By:Shaquille Nj
== END 2022-06-08 13:00 | DRG 871 ==
LOC: ED 14:35 → EDINP 16:57 → SUATTDRO 16:57 → 2S 19:40 → 3N 06-04 21:24